=== PATIENT | female | born 1955 | race Caucasian/White ===

== ENCOUNTER → 2016-06-25 | Outpatient (CLI) | payer OTHER ==
[~2016-06-25] MED LIST: ATOR10TA82 PO; CLB200 PO; CLX20 PO; ERGO500037 PO; ETAN25IN2 INJ; FOLI1TAB7 PO; HYDC25 PO; LISI-461 PO; METH2.5T PO; PRED-301 PO
[2016-06-25 10:44] LABS: BASO % 0.3 %; BASO ABS # 0.03 K/uL (0-0.2); COMPLETE YES; HEMATOCRIT 39.3 % (37-47); IG% 0.3 %; LYMPH % 26.1 %; LYMPH ABS # 2.34 K/uL (1.2-3.4); MEAN CELL VOLUME 97.8 fL (80-100); MEAN CORPUSCULAR HEMOGLOBIN 30.8 pg (25-34); MEAN CORPUSCULAR HGB CONC 31.6 g/dl (32-36); MEAN PLATELET VOLUME 9.8 fL (7.4-10.4); MONO % 7.6 %; NEUT % 62.7 %; PLATELET COUNT 242 K/uL (130-400); RED BLOOD COUNT 4.02 M/uL (4.2-5.4); WHITE BLOOD COUNT 8.95 K/uL (4.8-10.8)
[2016-06-25 10:59] LABS: ESTIMATED AVERAGE GLUCOSE 131 mg/dl; HA1C FLAG Normal (Normal)
[2016-06-25 11:33] LABS: ALKALINE PHOSPHATASE 71 U/L (45-117); ALT/SGPT 27 U/L (12-78); AST/SGOT 13 U/L (15-37); BLOOD UREA NITROGEN 20 mg/dl (7-18); BUN/CREATININE RATIO 22.5 (10-20); CALCIUM 9.5 mg/dl (8.5-10.1); CARBON DIOXIDE 32 mmol/L (21-32); CHLORIDE 108 mmol/L (98-107); CREATININE 0.89 mg/dl (0.60-1.20); GLUCOSE 127 mg/dl (70-99); HDL CHOLESTEROL 56 mg/dl; POTASSIUM 4.1 mmol/L (3.5-5.1); SODIUM 143 mmol/L (136-145)
[2016-06-25 11:34] LABS: ALB/GLOB RATIO 0.9 (0.9-2); CHOLESTEROL 167 mg/dl (0-200); LDL CHOLESTEROL CALCULATED 74 mg/dl; TRIGLYCERIDES 183 mg/dl (0-150); VERY LOW DENSITY LIPOPROT CALC 37 mg/dl
[2016-06-25 11:36] LABS: RATIO 12.1 mcg/mg (0-30.0)
== END | disposition home or self-care (01) ==
LOC: C.LAB1850 09:26
PROVIDERS: ATTEND Internal Medicine Rheumatology
DX: E11.9 Type 2 diabetes mellitus without complications (principal); M06.9 Rheumatoid arthritis, unspecified; E78.5 Hyperlipidemia, unspecified; E55.9 Vitamin D deficiency, unspecified; Z79.52 Long term (current) use of systemic steroids; Z79.899 Other long term (current) drug therapy

== ENCOUNTER → 2016-09-18 | Outpatient (CLI) | payer OTHER ==
[~2016-09-18] MED LIST changes: -ATOR10TA82 PO; +ATOR10TA88 PO
--- NOTE | 2016-09-21 08:00 | MAMMOGRAPHY REPORT ---
BILATERAL DIGITAL SCREENING MAMMOGRAM TOMOSYNTHESIS WITH CAD: 09/18/2016 CLINICAL HISTORY: Routine screening. Patient has no complaints. TECHNIQUE: Breast tomosynthesis in addition to standard 2D mammography was performed. Current study was also evaluated with a Computer Aided Detection (CAD) system. COMPARISON: Comparison is made to exams dated: 08/21/2015 mammogram, 08/17/2014 mammogram, 08/14/2013 m ammogram, 08/11/2012 mammogram, 07/31/2011 mammogram, and 07/03/2010 mammogram - [facility]. BREAST COMPOSITION: There are scattered areas of fibroglandular density in both breasts. FINDINGS: There is stable nodularity in the anterior and lateral left breast. No suspicious mass, ar chitectural distortion or cluster of microcalcifications is seen. IMPRESSION: ACR BI-RADS CATEGORY 1: NEGATIVE There is no mammographic evidence of malignancy. A 1 year screening mammogram is recommended. The pa tient will receive written notification of the results. Approximately 10% of breast cancers are not detected with mammography. A negative mammographic report should not delay biopsy if a clinically suggestive mass is present. Agnes Kimbrough M.D. ay/:09/18/2016 15:44:12 Prototype Carpenter: Alyssa LEDESMA(R)(M), [facility] letter sent: Normal 1/2 BI-RADS Code: ACR BI-RADS Category 1: Negative
== END | disposition home or self-care (01) ==
LOC: C.MAMM 15:08
PROVIDERS: ATTEND Internal Medicine
DX: Z12.31 Encounter for screening mammogram for malignant neoplasm of breast (principal)

== ENCOUNTER → 2016-10-15 | Outpatient (CLI) | payer OTHER ==
[2016-10-15 10:28] LABS: BASO % 0.3 %; BASO ABS # 0.03 K/uL (0-0.2); COMPLETE YES; EOS % 2.4 %; HEMATOCRIT 40.9 % (37-47); IG% 0.4 %; LYMPH % 26.5 %; LYMPH ABS # 3.18 K/uL (1.2-3.4); MEAN CELL VOLUME 95.3 fL (80-100); MEAN CORPUSCULAR HGB CONC 32.5 g/dl (32-36); MEAN PLATELET VOLUME 9.4 fL (7.4-10.4); NEUT % 62.4 %; PLATELET COUNT 271 K/uL (130-400); RED BLOOD COUNT 4.29 M/uL (4.2-5.4); WHITE BLOOD COUNT 11.99 K/uL (4.8-10.8)
[2016-10-15 10:39] LABS: BLOOD UREA NITROGEN 25 mg/dl (7-18); GLUCOSE 127 mg/dl (70-99)
[2016-10-15 10:40] LABS: ALT/SGPT 30 U/L (12-78); BUN/CREATININE RATIO 27.4 (10-20); CALCIUM 9.6 mg/dl (8.5-10.1); CARBON DIOXIDE 30 mmol/L (21-32); CHLORIDE 104 mmol/L (98-107); POTASSIUM 4.1 mmol/L (3.5-5.1); SODIUM 137 mmol/L (136-145)
[2016-10-15 10:42] LABS: ALKALINE PHOSPHATASE 72 U/L (45-117); AST/SGOT 15 U/L (15-37)
[2016-10-15 11:33] LABS: ESTIMATED AVERAGE GLUCOSE 140 mg/dl; HA1C FLAG Normal (Normal)
== END | disposition home or self-care (01) ==
LOC: C.LAB1850 09:03
PROVIDERS: ATTEND Internal Medicine
DX: E11.9 Type 2 diabetes mellitus without complications (principal); M06.9 Rheumatoid arthritis, unspecified; Z79.52 Long term (current) use of systemic steroids; Z79.899 Other long term (current) drug therapy; M25.532 Pain in left wrist

== ENCOUNTER → 2017-01-11 | Outpatient (CLI) | payer OTHER ==
[~2017-01-11] MED LIST changes: +ATOR10TA82 PO; -ATOR10TA88 PO
[2017-01-11 15:05] LABS: BASO % 0.2 %; BASO ABS # 0.02 K/uL (0-0.2); COMPLETE YES; EOS % 0.8 %; HEMATOCRIT 38.9 % (37-47); IG% 0.3 %; LYMPH % 14.7 %; LYMPH ABS # 1.85 K/uL (1.2-3.4); MEAN CORPUSCULAR HEMOGLOBIN 30.5 pg (25-34); MEAN CORPUSCULAR HGB CONC 31.1 g/dl (32-36); MEAN PLATELET VOLUME 9.6 fL (7.4-10.4); MONO % 7.2 %; NEUT % 76.8 %; PLATELET COUNT 245 K/uL (130-400); RED BLOOD COUNT 3.97 M/uL (4.2-5.4); WHITE BLOOD COUNT 12.57 K/uL (4.8-10.8)
[2017-01-11 15:25] LABS: ALT/SGPT 24 U/L (12-78); CREATININE 0.99 mg/dl (0.60-1.20)
[2017-01-11 15:28] LABS: ALKALINE PHOSPHATASE 74 U/L (45-117); AST/SGOT 13 U/L (15-37)
== END | disposition home or self-care (01) ==
LOC: C.LAB1850 12:09
PROVIDERS: ATTEND Internal Medicine Rheumatology
DX: M06.9 Rheumatoid arthritis, unspecified (principal); Z79.52 Long term (current) use of systemic steroids; Z79.899 Other long term (current) drug therapy

== ENCOUNTER → 2017-04-23 | Outpatient (CLI) | payer OTHER ==
[~2017-04-23] MED LIST changes: -FOLI1TAB7 PO; +FOLI1TAB8 PO
--- NOTE | 2017-04-23 08:41 | DIAGNOSTIC IMAGING REPORT ---
L WRIST MIN 3 VIEWS ROUTINE CLINICAL HISTORY: LEFT WRIST PAIN pain COMPARISON: None. DISCUSSION: Severe degenerative change radiocarpal and ulnar carpal articulations. Significant degenerative change of the radial ulnar articulation. Sclerosis of the articular services and this. Mild degenerative change of the remaining intercarpal as well as carpometacarpal joints. Moderate generalized soft tissue edema. IMPRESSION: Severe degenerative change primarily of the radial and ulnar carpal articulations. The above report was generated using voice recognition software. It may contain grammatical, syntax or spelling errors. Electronically signed by: Lucien Goodman M.D. 04/23/2017 8:40 AM Dictated Date/Time: 04/23/2017 8:39 AM
== END | disposition home or self-care (01) ==
LOC: C.RDSM 19:39
PROVIDERS: ATTEND Physician Assistant
DX: M25.532 Pain in left wrist (principal); M19.032 Primary osteoarthritis, left wrist

== ENCOUNTER → 2017-06-11 | Outpatient (CLI) | payer OTHER ==
--- NOTE | 2017-06-11 13:02 | DIAGNOSTIC IMAGING REPORT ---
CHEST 2 VIEWS ROUTINE HISTORY: 61 years-old Female J45.909 Asthma acute asthma COMPARISON: None available TECHNIQUE: PA and lateral views of the chest FINDINGS: Cardiomediastinal and hilar silhouettes are within normal limits. There is no pneumothorax, pleural effusion, focal airspace consolidation or overt pulmonary edema. Bones of the chest appear grossly intact. Multilevel endplate spurring about the spine. Evaluation of the lungs in the lateral view is limited secondary to positioning of the patient's upper extremities. IMPRESSION: No acute process of the chest. The above report was generated using voice recognition software. It may contain grammatical, syntax or spelling errors. Electronically signed by: Ozzy Jimenez M.D. 06/11/2017 1:00 PM Dictated Date/Time: 06/11/2017 12:59 PM
[2017-06-11 14:05] LABS: BASO % 0.1 %; BASO ABS # 0.02 K/uL (0-0.2); EOS % 1.3 %; EOS ABS # 0.21 K/uL (0-0.5); HEMATOCRIT 41.9 % (37-47); HEMOGLOBIN 13.4 g/dL (12.0-16.0); IG# 0.16 K/uL (0.00-0.02); LYMPH % 15.1 %; LYMPH ABS # 2.46 K/uL (1.2-3.4); MEAN CELL VOLUME 94.8 fL (80-100); MEAN CORPUSCULAR HEMOGLOBIN 30.3 pg (25-34); MEAN PLATELET VOLUME 9.6 fL (7.4-10.4); MONO % 6.2 %; MONO ABS # 1.01 K/uL (0.11-0.59); NEUT % 76.3 %; NEUT ABS # 12.41 K/uL (1.4-6.5); PLATELET COUNT 261 K/uL (130-400); RED CELL DISTRIBUTION WIDTH CV 14.2 % (11.5-14.5); RED CELL DISTRIBUTION WIDTH SD 48.3 fL (36.4-46.3); WHITE BLOOD COUNT 16.27 K/uL (4.8-10.8)
[2017-06-11 14:28] LABS: ALBUMIN 3.4 gm/dl (3.4-5.0); ALT/SGPT 24 U/L (12-78); AST/SGOT 13 U/L (15-37); CREATININE 0.99 mg/dl (0.60-1.20)
[2017-06-11 14:30] LABS: ALKALINE PHOSPHATASE 79 U/L (45-117); TOTAL PROTEIN 7.8 gm/dl (6.4-8.2)
== END | disposition home or self-care (01) ==
LOC: C.RAD1850 12:37
PROVIDERS: ATTEND Internal Medicine
DX: J45.909 Unspecified asthma, uncomplicated (principal); M06.9 Rheumatoid arthritis, unspecified; Z79.899 Other long term (current) drug therapy; M25.532 Pain in left wrist

== ENCOUNTER 2019-11-08 05:33 | Inpatient (IN) ==
[2019-11-08] MEDS ORDERED: KETOROLAC TROMETHAMINE 15 MG/ML VIAL IV STA (06:47)
[2019-11-08] MEDS ORDERED: ACETAMINOPHEN 1,000 MG/100 ML VIAL IV STA (06:47)
[2019-11-08] MEDS ORDERED: SODIUM CHLORIDE 0.9% 1000ML 1,000 ML IV ONE (06:47)
[2019-11-08] MEDS ORDERED: DEXAMETHASONE SOD INJ 10 MG/ML VIAL IV ONE (06:47)
--- NOTE | 2019-11-08 07:00 | Emergency Department Note ---
Impression & Plan Protrusion of lumbar intervertebral disc, Left lumbar radiculopathy, Intractable low back pain ED Provider Note NAME: ARIELLA ROBERTSON AGE: 64 SEX: F ARRIVES VIA: Ambulance INFORMANT: Patient, ED PROVIDER(S): Anish Brown MD CHIEF COMPLAINT: Back pain PLAN: Disposition: Admit MEDICAL DECISION MAKING: The patient is a pleasant 60-year-old woman with a past medical history of chronic back pain, rheumatoid arthritis, hypertension, hyperlipidemia who presents emergency department with worsening lumbar pain with radiation and numbness down her left leg seen in emergency department on 11/03 for similar symptoms, pain management and currently following with attempting to get outpatient MRI but requires sedation and coordination with anesthesia due to her severe claustrophobia even with an open MRI. Patient denies any urinary retention or loss of bowel control. She denies any fevers, chills, cough, congestion, vomiting, diarrhea, urinary symptoms. She reports that the flare of her pain started breast about a month ago and would wax and wane. It got much worse 4 days ago and so she presented to the emergency department. She reports she did feel some over the past 4 days where she was able to ambulate improvement back and forth from the bathroom but otherwise has not been doing much. Last night around 4 AM she reports going to the bathroom and when bending over to sit on the commode felt a acute flare of her pain that nearly made her fall but she fortunately sat back onto the toilet. Given this flare of pain she comes to emergency department. On arrival the patient is uncomfortable no acute distress, afebrile stable vital signs. She has mild left lower lumbar tenderness which radiates distally in the sciatic distribution. Positive straight leg raise. Reflexes within normal limits. No clonus. L5 intact bilaterally. No midline tenderness or step-offs. WBC 11.7, nonspecific. H/H and platelets within normal limits. Chemistry without acidosis. Electrolytes and LFTs unremarkable. ESR marginally elevated but CRP within normal limits. UA without convincing evidence of infection given epithelial cells. CT on pelvis was performed and demonstrates left lateral disc herniation with superiorly extruded fragment at L4-L5. Findings do correlate with the patient's symptoms. While patient did feel improved she does report still feeling uncomfortable and is concerned that her symptoms will flare again and given that the patient was barely able to walk prior to arrival we agreed to proceed with admission for pain control. I did review the case with Dr. Uribe, orthopedic spine who was about to begin an OR case but I described the patient's symptoms and imaging findings and we agree with admission to medicine service for pain control and he will be available for consultation. Likely will require anesthesia consultation to obtain MRI. Case was discussed with Dr. Barnett, [facility] hospitalist, who will evaluate the patient for admission. Triage Nursing notes reviewed and agree them. Prior medical records reviewed Vital Signs: reviewed and remarkable for no significant abnormalities Differential diagnosis: Musculoskeletal, disc herniation, fracture, metastatic disease, cord compression, discitis, sciatica, cauda equina, infection, aortic disease, renal colic, gastrointestinal, as well as other pathologies. ER treatment provided: See below. Diagnostics interpreted by me: Cardiac Monitoring: An order for continuous cardiac monitoring was placed and demonstrated NSr, 67 bpm, no ectopy. Laboratory studies: See below Imaging studies: CT SCAN OF THE ABDOMEN AND PELVIS WITH IV CONTRAST CLINICAL HISTORY: Left-sided back pain. COMPARISON STUDY: MRI of lumbar spine dated 02/23/2018. TECHNIQUE: Following the IV administration of 94 cc of Optiray 320, CT scan of the abdomen and pelvis is performed from the lung bases to the proximal femora. Images are reviewed in the axial, sagittal, and coronal planes. IV contrast was administered without complication. A dose lowering technique was utilized adhering to the principles of ALARA. CT DOSE: 1654.52 mGy.cm FINDINGS: Lung bases: The heart is top normal in size and without pericardial effusion. There is a small hiatal hernia. The lung bases are clear noting dependent atelectasis. Liver: The contrast-enhanced liver is enlarged, measuring 20.5 cm in length. The liver demonstrates diminished attenuation suggesting steatosis. There is no intrahepatic biliary ductal dilatation. The hepatic veins and portal veins are patent. Gallbladder: Unremarkable. Spleen: Normal in size and attenuation. Pancreas: Unremarkable. Adrenal glands: Unremarkable. Kidneys: The contrast enhanced kidneys demonstrate mild cortical atrophy and are without hydronephrosis. The kidneys enhance symmetrically. Abdominal vasculature: The abdominal aorta is normal in course and caliber noting mild atherosclerotic calcification. Bowel: There is moderate colonic diverticulosis without CT evidence of acute diverticulitis. No bowel obstruction is seen. The appendix is well-visualized and normal. Peritoneum: There is no intraperitoneal free air or abdominal ascites. There is a small fat-containing umbilical hernia. Lymphadenopathy: None. Pelvic viscera: The bladder is decompressed and grossly unremarkable. The endometrium is prominent for age measuring up to 11 mm in thickness. There is also prominence of the left ovary which measures 3.6 cm. Skeletal structures: The skeletal structures are osteopenic. There is mild lumbosacral spondylosis. There is a disc herniation eccentric to the left at L4- L5 with a superiorly extruded fragment which is best seen on image #265. No lytic or blastic lesions are seen. IMPRESSION: 1. There are no acute infectious or inflammatory findings in the abdomen or pelvis. 2. There is a left lateral disc herniation with a superiorly extruded fragment seen at L4-L5. 3. The endometrium is prominent for age measuring up to 11 mm. There is also nonspecific prominence of the left ovary. These findings are not well evaluated by CT and follow-up with a pelvic ultrasound and gynecology assessment is isabel mmended for further evaluation. 4. Moderate colonic diverticulosis without CT evidence of acute diverticulitis. 5. Hepatomegaly and mild steatosis. 6. Additional findings as above. Consultation(s): Dr. Uribe, orthopedic spine surgery. Dr. Barnett, [facility] hospitalist. HPI: The patient is a pleasant 60-year-old woman with a past medical history of chronic back pain, rheumatoid arthritis, hypertension, hyperlipidemia who presents emergency department with worsening lumbar pain with radiation and numbness down her left leg seen in emergency department on 11/03 for similar symptoms, pain management and currently following with attempting to get outpatient MRI but requires sedation and coordination with anesthesia due to her severe claustrophobia even with an open MRI. Patient denies any urinary retention or loss of bowel control. She denies any fevers, chills, cough, congestion, vomiting, diarrhea, urinary symptoms. She reports that the flare of her pain started breast about a month ago and would wax and wane. It got much worse 4 days ago and so she presented to the emergency department. She reports she did feel some over the past 4 days where she was able to ambulate improvement back and forth from the bathroom but otherwise has not been doing much. Last night around 4 AM she reports going to the bathroom and when bending over to sit on the commode felt a acute flare of her pain that nearly made her fall but she fortunately sat back onto the toilet. Given this flare of pain she comes to emergency department. ROS: See above HPI for pertinent positives & negatives. A total of 10 systems reviewed and were otherwise negative. PAST MEDICAL HISTORY:See Below PAST SURGICAL HISTORY:See Below FAMILY HISTORY:See Below SOCIAL HISTORY:See Below HOME MEDICATIONS:See Below ALLERGIES:See Below VITALS:See Below PHYSICAL EXAMINATION: GENERAL: Awake, alert, uncomfortable-appearing, in no distress. BMI 39. HENT: Normocephalic, atraumatic. Oropharynx with dry mucous membranes and otherwise unremarkable. EYES: Normal conjunctiva. Sclera non-icteric. NECK: Supple. No nuchal rigidity. FROM. No JVD. RESPIRATORY: Clear to auscultation. CARDIAC: Regular rate, normal rhythm. Extremities warm and well perfused. Pulses equal. ABDOMEN: Soft, non-distended. No tenderness to palpation. No rebound or guarding. No masses. RECTAL: Deferred. MUSCULOSKELETAL: Chest examination reveals no tenderness. The back is symmetrical on inspection without obvious abnormality. There is no CVA tenderness to palpation. No joint edema. LOWER EXTREMITIES: Calves are equal size bilaterally and non-tender. No edema. No discoloration. NEURO: Normal sensorium. No sensory or motor deficits noted. 5/5 strength and SILT x 4 extremities. Reflexes within normal limits. No clonus. L5 intact bilaterally. SKIN: No rash or jaundice noted. Anish Brown MD Past Med/Surg History Medical History Anxiety Asthma Chronic back pain Chronic left sacroiliac joint pain Claustrophobia Depression Hyperlipidemia Hypertension Morbid obesity Rheumatoid arthritis Surgical History History of cataract surgery BILATERAL History of colonoscopy History of total knee replacement BILATERAL S/P epidural steroid injection lumbar Family History Mother Family hx of colon cancer Father Family history of diabetes mellitus Family/Other Family history of diabetes mellitus Social History Smoking Status: Never smoker Second Hand Exposure: No; Hx Alcohol Use: No Hx Substance Use: No Preferred Language: Spanish Communication Ability: Effective Rn Telephonic Required: No Beliefs That Will Affect Care: None Current Living Situation: Spouse Feels Safe at Home: Yes Allergies Allergies Allergy/AdvReac Type Severity Reaction Status Date / Time cat dander Allergy Intermediate Wheezing Verified 11/08/19 05:47 levofloxacin Allergy Intermediate Rash Verified 11/08/19 05:47 Home Meds Home Medications Medication Instructions Recorded Confirmed folic acid 1 mg PO DAILY 01/18/18 11/08/19 methotrexate sodium 15 mg PO WK 01/18/18 11/08/19 etanercept 50 mg/mL (1 mL) 50 mg SQ WEEKLY ml 10/25/18 11/08/19 subcutaneous syringe acetaminophen 1,000 mg PO Q6H PRN 11/04/19 11/08/19 cholecalciferol (vitamin D3) 2,000 unit PO DAILY 11/04/19 11/08/19 [Vitamin D3] famotidine 40 mg PO QPM 11/04/19 11/08/19 prednisone 5 mg PO DAILY 11/04/19 11/08/19 Previous Rx's Medication Instructions Recorded atorvastatin 10 mg tablet 10 mg PO QPM #90 tab 09/28/19 celecoxib 200 mg capsule 200 mg PO BID #180 cap 09/28/19 citalopram 20 mg tablet 20 mg PO QPM #90 tab 09/28/19 hydrochlorothiazide 25 mg tablet 25 mg PO QAM #90 tab 09/28/19 lisinopril 10 mg tablet 10 mg PO QAM #90 tab 09/28/19 methylprednisolone [Medrol (Tolu)] 4 mg PO DIRECTED #21 ea 11/04/19 oxycodone 5 mg PO Q6H PRN #14 tab 11/04/19 sennosides-docusate sodium 1 tab-cap PO BID PRN #60 tab 11/04/19 [Senokot-S] Results & Data (ED) Vital Signs Vital Signs - 24 hr 11/08/19 05:40 11/08/19 07:05 11/08/19 08:06 Temperature 36.7 C Temperature Source Oral Pulse Rate 71 Pulse Rate [Right Finger] 76 Respiratory Rate 20 20 Respiratory Effort / Characteristics Non-Labored Spontaneous Respiratory Depth Normal Normal Blood Pressure 148/85 H Blood Pressure [Right Arm] 137/93 Blood Pressure Mean 106 Blood Pressure Mean [Right Arm] 107 Pulse Oximetry 94 96 95 Oxygen Delivery Method Room Air Room Air Room Air Sepsis Recent Fever Within 48 Hours No Sepsis New/Unexplained Change in Mental Status N/A Sepsis Action Taken by Nursing No Action Required 11/08/19 09:57 11/08/19 11:06 Temperature Temperature Source Pulse Rate Pulse Rate [Right Finger] 58 L 63 Respiratory Rate 20 20 Respiratory Effort / Characteristics Non-Labored Respiratory Depth Normal Blood Pressure Blood Pressure [Right Arm] 132/74 148/97 H Blood Pressure Mean Blood Pressure Mean [Right Arm] 93 114 Pulse Oximetry 94 96 Oxygen Delivery Method Room Air Room Air Sepsis Recent Fever Within 48 Hours Sepsis New/Unexplained Change in Mental Status Sepsis Action Taken by Nursing Laboratory Data Attestation: I reviewed the patient's lab results. Result diagrams: 11/08/19 07:00 11/08/19 07:00 Lab Results 11/08/19 11/08/19 11/08/19 Range/Units 07:00 07:00 07:00 WBC 11.73 H (4.8-10.8) K/uL RBC 4.39 (4.2-5.4) M/uL Hgb 13.3 (12.0-16.0) g/dL Hct 41.5 (37-47) % MCV 94.5 (80-100) fL MCH 30.3 (25-34) pg MCHC 32.0 (32-36) g/dL RDW Std Deviation 50.2 H (36.4-46.3) fL RDW Coeff of Jaqueline 14.6 H (11.5-14.5) % Plt Count 245 (130-400) K/uL MPV 9.4 (7.4-10.4) fL Immature Gran % (Auto) 0.4 % Neut % (Auto) 73.8 % Lymph % (Auto) 19.0 % Treasure % (Auto) 6.6 % Eos % (Auto) 0.1 % Baso % (Auto) 0.1 % Neut # (Auto) 8.65 H (1.4-6.5) K/uL Lymph # (Auto) 2.23 (1.2-3.4) K/uL Treasure # (Auto) 0.78 H (0.11-0.59) K/uL Eos # (Auto) 0.01 (0-0.5) K/uL Baso # (Auto) 0.01 (0-0.2) K/uL Immature Gran # (Auto) 0.05 H (0.00-0.02) K/uL ESR 29 H (0-21) mm/hr Sodium 137 (136-145) mmol/L Potassium 4.5 (3.5-5.1) mmol/L Chloride 102 (98-107) mmol/L Carbon Dioxide 29 (21-32) mmol/L Anion Gap 6.0 (3-11) BUN 33 H (7-18) mg/dl Creatinine 1.07 (0.6-1.2) mg/dl Est Cr Clr Drug Dosing 67.1 ml/min Est GFR ( Amer) 62.7 Est GFR (Non-Af Amer) 54.1 BUN/Creatinine Ratio 31.2 H (10-20) Glucose 181 H (70-99) mg/dl Calcium 10.2 H (8.5-10.1) mg/dl Total Bilirubin 0.3 (0.2-1) mg/dl AST 15 (15-37) U/L ALT 31 (12-78) U/L Alkaline Phosphatase 57 (45-117) U/L C-Reactive Protein < 0.29 (0-0.29) mg/dl Total Protein 7.5 (6.4-8.2) gm/dl Albumin 3.5 (3.4-5.0) gm/dl Globulin 4.0 (2.5-4.0) gm/dl Albumin/Globulin Ratio 0.9 (0.9-2) Lipase 146 (73-393) U/L Urine Color Urine Appearance (Clear) Urine pH (4.5-7.5) Ur Specific [place] (1.000-1.030) Urine Protein (Negative) Urine Glucose (UA) (Negative) Urine Ketones (Negative) Urine Blood (Negative) Urine Nitrite (Negative) Urine Bilirubin (Negative) Urine Urobilinogen (Negative) Ur Leukocyte Esterase (Negative) Urine WBC (Auto) (0-5) /hpf Urine RBC (Auto) (0-4) /hpf U Hyaline Cast (Auto) (0-5) /lpf U Epithel Cells (Auto) (0-5) /lpf Urine Bacteria (Auto) (Negative) 11/08/19 Range/Units 08:00 WBC (4.8-10.8) K/uL RBC (4.2-5.4) M/uL Hgb (12.0-16.0) g/dL Hct (37-47) % MCV (80-100) fL MCH (25-34) pg MCHC (32-36) g/dL RDW Std Deviation (36.4-46.3) fL RDW Coeff of Jaqueline (11.5-14.5) % Plt Count (130-400) K/uL MPV (7.4-10.4) fL Immature Gran % (Auto) % Neut % (Auto) % Lymph % (Auto) % Treasure % (Auto) % Eos % (Auto) % Baso % (Auto) % Neut # (Auto) (1.4-6.5) K/uL Lymph # (Auto) (1.2-3.4) K/uL Treasure # (Auto) (0.11-0.59) K/uL Eos # (Auto) (0-0.5) K/uL Baso # (Auto) (0-0.2) K/uL Immature Gran # (Auto) (0.00-0.02) K/uL ESR (0-21) mm/hr Sodium (136-145) mmol/L Potassium (3.5-5.1) mmol/L Chloride (98-107) mmol/L Carbon Dioxide (21-32) mmol/L Anion Gap (3-11) BUN (7-18) mg/dl Creatinine (0.6-1.2) mg/dl Est Cr Clr Drug Dosing ml/min Est GFR ( Amer) Est GFR (Non-Af Amer) BUN/Creatinine Ratio (10-20) Glucose (70-99) mg/dl Calcium (8.5-10.1) mg/dl Total Bilirubin (0.2-1) mg/dl AST (15-37) U/L ALT (12-78) U/L Alkaline Phosphatase (45-117) U/L C-Reactive Protein (0-0.29) mg/dl Total Protein (6.4-8.2) gm/dl Albumin (3.4-5.0) gm/dl Globulin (2.5-4.0) gm/dl Albumin/Globulin Ratio (0.9-2) Lipase (73-393) U/L Urine Color Yellow Urine Appearance Clear (Clear) Urine pH 6.0 (4.5-7.5) Ur Specific [place] 1.029 (1.000-1.030) Urine Protein Negative (Negative) Urine Glucose (UA) Negative (Negative) Urine Ketones Negative (Negative) Urine Blood Negative (Negative) Urine Nitrite Negative (Negative) Urine Bilirubin Negative (Negative) Urine Urobilinogen Negative (Negative) Ur Leukocyte Esterase Trace H (Negative) Urine WBC (Auto) 5-10 H (0-5) /hpf Urine RBC (Auto) 0-4 (0-4) /hpf U Hyaline Cast (Auto) 1-5 (0-5) /lpf U Epithel Cells (Auto) >30 H (0-5) /lpf Urine Bacteria (Auto) Negative (Negative) Administered Medications Acetaminophen (Acetaminophen 325 Mg Tab) 650 mg PO Q4H PRN PRN Reason: pain/fever Stop: 12/08/19 11:07 Last Admin: 11/08/19 20:03 Dose: 650 mg Documented by: [id number] Atorvastatin Calcium (Atorvastatin 10 Mg Tab) 10 mg PO QPM YULISA Stop: 12/08/19 20:59 Last Admin: 11/08/19 20:04 Dose: 10 mg Documented by: [id number] Citalopram Hydrobromide (Citalopram 20 Mg Tab) 20 mg PO QPM YULISA Stop: 12/08/19 20:59 Last Admin: 11/08/19 20:04 Dose: 20 mg Documented by: [id number] Famotidine (Famotidine 40 Mg Tablet) 40 mg PO QPM YULISA Stop: 12/08/19 20:59 Last Admin: 11/08/19 20:04 Dose: 40 mg Documented by: [id number] Heparin Sodium (Porcine) (Heparin Sod 5,000 Unit/0.5 Ml Vial) 5,000 units SQ Q8 YULISA Stop: 12/08/19 13:59 Last Admin: 11/08/19 22:03 Dose: 5,000 units Documented by: [id number] Cosigned by: [id number] Admin: 11/08/19 15:00 Dose: 5,000 units Documented by: [id number] Cosigned by: [id number] Morphine Sulfate (Morphine Sulfate 2 Mg/Ml Carp) 2 mg IV Q4H PRN PRN Reason: Severe Pain Stop: 11/22/19 11:11 Last Admin: 11/08/19 22:03 Dose: 2 mg Documented by: [id number] Admin: 11/08/19 13:51 Dose: 2 mg Documented by: [id number] Discontinued Medications Dexamethasone (Dexamethasone Sod Inj 10 Mg/Ml Vial) 10 mg IV NOW ONE Stop: 11/08/19 06:48 Last Admin: 11/08/19 06:58 Dose: 10 mg Documented by: [id number] Hydrochlorothiazide (Hydrochlorothiazide 25 Mg Tab) 25 mg PO NOW STA Stop: 11/08/19 12:14 Last Admin: 11/08/19 13:44 Dose: 25 mg Documented by: [id number] Sodium Chloride (Nss 1000ml) 1,000 mls @ 999 mls/hr IV .Q1H1M ONE Stop: 11/08/19 07:47 Last Infusion: 11/08/19 08:07 Dose: 0 mls/hr Documented by: [id number] Admin: 11/08/19 06:59 Dose: 999 mls/hr Documented by: [id number] Acetaminophen (Ofirmev) 1,000 mg in 100 mls @ 400 mls/hr IV NOW STA Stop: 11/08/19 07:01 Last Infusion: 11/08/19 07:56 Dose: 0 mls/hr Documented by: [id number] Admin: 11/08/19 06:58 Dose: 400 mls/hr Documented by: [id number] Ioversol (Ioversol 100ml) 94 ml IV ONCE ONE Stop: 11/08/19 08:09 Last Admin: 11/08/19 08:08 Dose: 94 ml Documented by: [id number] Ketorolac Tromethamine (Ketorolac Tromethamine 15 Mg/Ml Vial) 15 mg IV NOW STA Stop: 11/08/19 06:48 Last Admin: 11/08/19 06:58 Dose: 15 mg Documented by: [id number] Lisinopril (Lisinopril 10 Mg Tab) 10 mg PO NOW ONE Stop: 11/08/19 12:15 Last Admin: 11/08/19 13:44 Dose: 10 mg Documented by: [id number] Morphine Sulfate (Morphine Sulfate 4 Mg/Ml 1 Ml Carp\Vial) 4 mg IV NOW STA Stop: 11/08/19 10:40 Last Admin: 11/08/19 11:03 Dose: 4 mg Documented by: [id number] Blood Pressure Blood Pressure Findings: Normal blood pressure Blood Pressure Disposition: further management by hospitalist Discharge Plan Visit Data Chief Complaint: Back Injury/Pain Stated Complaint: BACK PAIN ED Provider: Anish Brown Discharge Problem: Protrusion of lumbar intervertebral disc, Left lumbar radiculopathy, Intractable low back pain Patient Disposition: Admitted As Inpatient Discharge Instructions Interventions: ED Discharge Assessment Last Done: 11/08/19 12:00
[2019-11-08 07:18] LABS: Basophils # (auto) 0.01 K/uL (0-0.2); Basophils % (auto) 0.1 %; Eosinophils # (auto) 0.01 K/uL (0-0.5); Eosinophils % (auto) 0.1 %; Hematocrit (blood only) 41.5 % (37-47); Hemoglobin 13.3 g/dL (12.0-16.0); Immature Granulocytes # (auto) 0.05 K/uL (0.00-0.02); Immature Granulocytes % (auto) 0.4 %; Lymphocytes # (auto) 2.23 K/uL (1.2-3.4); Mean Corpuscular Hemoglobin 30.3 pg (25-34); Mean Corpuscular Volume 94.5 fL (80-100); Mean Platelet Volume 9.4 fL (7.4-10.4); Monocytes # (auto) 0.78 K/uL (0.11-0.59); Monocytes % (auto) 6.6 %; Neutrophils # (auto) 8.65 K/uL (1.4-6.5); Neutrophils % (auto) 73.8 %; Platelet Count 245 K/uL (130-400); RDW Coefficient of Variation 14.6 % (11.5-14.5); RDW Standard Deviation 50.2 fL (36.4-46.3); Red Blood Count 4.39 M/uL (4.2-5.4); White Blood Count 11.73 K/uL (4.8-10.8)
[2019-11-08 07:36] LABS: Alanine Aminotransferase 31 U/L (12-78); Albumin Level 3.5 gm/dl (3.4-5.0); Aspartate Aminotransferase 15 U/L (15-37); BUN Creatinine Ratio 31.2 (10-20); Blood Urea Nitrogen 33 mg/dl (7-18); Calcium 10.2 mg/dl (8.5-10.1); Carbon Dioxide 29 mmol/L (21-32); Chloride 102 mmol/L (98-107); Creatinine Clr Calc Pharmacy 67.1 ml/min; Est GFR (African American) 62.7; Est GFR (Non-African American) 54.1; Glucose 181 mg/dl (70-99); Lipase 146 U/L (73-393); Potassium 4.5 mmol/L (3.5-5.1); Sodium 137 mmol/L (136-145)
[2019-11-08 07:39] LABS: Albumin Globulin Ratio 0.9 (0.9-2); Alkaline Phosphatase 57 U/L (45-117); Bilirubin,Total 0.3 mg/dl (0.2-1); C Reactive Protein < 0.29 mg/dl (0-0.29); Total Protein 7.5 gm/dl (6.4-8.2)
[2019-11-08] MEDS ORDERED: IOVERSOL 100ml IV ONE (08:08)
[2019-11-08 08:09] LABS: Appearance Urine Clear (Clear); Bacteria Urine Automated Negative (Negative); Bilirubin Urine Negative (Negative); Blood Urine Negative (Negative); Color Urine Yellow; Epithelial Cell Urine Auto >30 /lpf (0-5); Glucose Urine UA Negative (Negative); Ketones Urine Negative (Negative); Leukocyte Esterase Urine Trace (Negative); Nitrite Urine Negative (Negative); Protein Urine Negative (Negative); RBC Urine Automated 0-4 /hpf (0-4); Specific Gravity Urine 1.029 (1.000-1.030); Urobilinogen Urine Negative (Negative)
--- NOTE | 2019-11-08 08:37 | CT Scan Report ---
CT SCAN OF THE ABDOMEN AND PELVIS WITH IV CONTRAST CLINICAL HISTORY: Left-sided back pain. COMPARISON STUDY: MRI of lumbar spine dated 02/23/2018. TECHNIQUE: Following the IV administration of 94 cc of Optiray 320, CT scan of the abdomen and pelvi s is performed from the lung bases to the proximal femora. Images are reviewed in the axial, sagittal , and coronal planes. IV contrast was administered without complication. A dose lowering technique wa s utilized adhering to the principles of ALARA. CT DOSE: 1654.52 mGy.cm FINDINGS: Lung bases: The heart is top normal in size and without pericardial effusion. There is a small hiatal hernia. The lung bases are clear noting dependent atelectasis. Liver: The contrast-enhanced liver is enlarged, measuring 20.5 cm in length. The liver demonstrates d iminished attenuation suggesting steatosis. There is no intrahepatic biliary ductal dilatation. The h epatic veins and portal veins are patent. Gallbladder: Unremarkable. Spleen: Normal in size and attenuation. Pancreas: Unremarkable. Adrenal glands: Unremarkable. Kidneys: The contrast enhanced kidneys demonstrate mild cortical atrophy and are without hydronephros is. The kidneys enhance symmetrically. Abdominal vasculature: The abdominal aorta is normal in course and caliber noting mild atheroscleroti c calcification. Bowel: There is moderate colonic diverticulosis without CT evidence of acute diverticulitis. No bowel obstruction is seen. The appendix is well-visualized and normal. Peritoneum: There is no intraperitoneal free air or abdominal ascites. There is a small fat-containin g umbilical hernia. Lymphadenopathy: None. Pelvic viscera: The bladder is decompressed and grossly unremarkable. The endometrium is prominent fo r age measuring up to 11 mm in thickness. There is also prominence of the left ovary which measures 3 .6 cm. Skeletal structures: The skeletal structures are osteopenic. There is mild lumbosacral spondylosis. T here is a disc herniation eccentric to the left at L4-L5 with a superiorly extruded fragment which is best seen on image #265. No lytic or blastic lesions are seen. IMPRESSION: 1. There are no acute infectious or inflammatory findings in the abdomen or pelvis. 2. There is a left lateral disc herniation with a superiorly extruded fragment seen at L4-L5. 3. The endometrium is prominent for age measuring up to 11 mm. There is also nonspecific prominence o f the left ovary. These findings are not well evaluated by CT and follow-up with a pelvic ultrasound and gynecology assessment is recommended for further evaluation. 4. Moderate colonic diverticulosis without CT evidence of acute diverticulitis. 5. Hepatomegaly and mild steatosis. 6. Additional findings as above. ACT 112: Negative or not required by law. Electronically signed by: Kvng Lowery M.D. 11/08/2019 8:35 AM
[2019-11-08] MEDS ORDERED: MoRPHine SULFATE 4 MG/ML 1 ML CARP\\VIAL IV STA (10:39)
[2019-11-08] MEDS ORDERED: ONDANSETRON INJ 2 MG/ML 2 ML VIAL IV PRN (11:08)
[2019-11-08] MEDS ORDERED: POLYETHYLENE (MIRALAX) 17 GM PACK PO PRN (11:08)
[2019-11-08] MEDS ORDERED: OXYCODONE HCL IR 5 MG TAB (IMMEDIATE RELEASE) PO PRN (11:10)
[2019-11-08] MEDS ORDERED: MoRPHine SULFATE 2 MG/ML CARP IV PRN (11:12)
--- NOTE | 2019-11-08 11:22 | History & Physical Report ---
Date of Service November 08, 2019 Assessment & Plan (1) Left lumbar radiculopathy: will admit to hospital under obs. will have her seen by Yakov Ralph. will place her on IV pain medicine will obtain MRI, given she has severe calustrophobia, will have anesthesia consulted for sedation. (2) Hyperlipidemia: resume home meds (3) Hypertension: resume home meds (4) Depression: will place on citalopram 20 mg PO HS (5) Anxiety: will resume home meds (6) Rheumatoid arthritis: stable, will monitor (7) Chronic back pain: as staed above DVT: hepari (8) Morbid obesity: recommend lifestyle changes History of Present Illness Chief Complaint: Acute lower back pain Primary Care Provider: Jose Braxton MD This is a pleasant 64-year-old female who appears to the ER with a past medical history of chronic back pain rheumatoid arthritis hypertension hyperlipidemia. Her main complaint is an exacerbation of her radicular back pain, And numbness down her left leg. She was previously seen by Dr. Yakov Rosenberg over a pain management from [facility]. But has been trying to get into orthopedic surgeon Dr. Yakov Uribe. She was recently seen in the ER on 11/03 for similar symptoms and has been trying to get an outpatient MRI but patient is extremely claustrophobic and requires sedation. Patient denies any urinary retention or loss of bowel control fever chills nausea vomiting urinary symptoms. Patient reports that after being seen in the ER and obtaining medications such as steroid steroids her pain had improved however this morning when she was walking towards the bathroom she was bending over to sit on her commode she felt acute flare of her back pain which caused her to fall but thankfully she if she fell on to the toilet. The pain grew severe 1010 intensity sharp. This prompted the patient to return to the ER. I discussed the case with the ER provider and agree that patient should be admitted under observation for pain control. This patient case was also says Dr. Uribe orthopedic surgeon who will see her later and during his hospital stay. Will consult anesthesia to obtain MRI. Allergies Allergy/AdvReac Type Severity Reaction Status Date / Time cat dander Allergy Intermediate Wheezing Verified 11/08/19 05:47 levofloxacin Allergy Intermediate Rash Verified 11/08/19 05:47 Home Medications Home Medications Medication Instructions Recorded Confirmed Type folic acid 1 mg PO DAILY 01/18/18 11/08/19 History methotrexate sodium 15 mg PO WK 01/18/18 11/08/19 History etanercept 50 mg/mL (1 mL) 50 mg SQ WEEKLY ml 10/25/18 11/08/19 History subcutaneous syringe atorvastatin 10 mg tablet 10 mg PO QPM #90 tab 09/28/19 11/08/19 Rx celecoxib 200 mg capsule 200 mg PO BID #180 cap 09/28/19 11/08/19 Rx citalopram 20 mg tablet 20 mg PO QPM #90 tab 09/28/19 11/08/19 Rx hydrochlorothiazide 25 mg tablet 25 mg PO QAM #90 tab 09/28/19 11/08/19 Rx lisinopril 10 mg tablet 10 mg PO QAM #90 tab 09/28/19 11/08/19 Rx acetaminophen 1,000 mg PO Q6H PRN 11/04/19 11/08/19 History cholecalciferol (vitamin D3) 2,000 unit PO DAILY 11/04/19 11/08/19 History [Vitamin D3] famotidine 40 mg PO QPM 11/04/19 11/08/19 History methylprednisolone [Medrol (Tolu)] 4 mg PO DIRECTED #21 ea 11/04/19 11/08/19 Rx oxycodone 5 mg PO Q6H PRN #14 tab 11/04/19 11/08/19 Rx prednisone 5 mg PO DAILY 11/04/19 11/08/19 History sennosides-docusate sodium 1 tab-cap PO BID PRN #60 tab 11/04/19 11/08/19 Rx [Senokot-S] Past Med/Surg History Medical History Anxiety Asthma Chronic back pain Chronic left sacroiliac joint pain Claustrophobia Depression Hyperlipidemia Hypertension Morbid obesity Rheumatoid arthritis Surgical History History of cataract surgery BILATERAL History of colonoscopy History of total knee replacement BILATERAL S/P epidural steroid injection lumbar Family History Mother Family hx of colon cancer Father Family history of diabetes mellitus Family/Other Family history of diabetes mellitus Social History Smoking Status: Never smoker Second Hand Exposure: No; Hx Alcohol Use: No Hx Substance Use: No Preferred Language: [place] Communication Ability: Effective Public Safety Dispatcher Required: No Beliefs That Will Affect Care: None Current Living Situation: Spouse Feels Safe at Home: Yes Review of Systems Constitutional: no sweats and no malaise Eyes: no blind spots and no discharge Ear, Nose, Mouth, Throat: no ear trauma and no hyperacusis Respiratory: no cough and no dyspnea Cardiovascular: no chest pain with activity Gastrointestinal: no bloating and no nausea Genitourinary: no urinary frequency Musculoskeletal: no back pain Integumentary: no rash Neurologic: no gait abnormality and no localized weakness Psychiatric: no change in appetite Endocrine: no polydipsia Hematologic / Lymphatic: no coagulopathy Allergy / Immunological: no seasonal rhinorrhea Physical Exam Constitutional: WD/WN, vitals as above Eyes: PERRL, conjunctivae normal, anicteric sclerae ENMT: external ear and nose normal, oropharynx normal Neck: trachea midline, no thyromegaly Respiratory: normal respiratory effort, lungs clear to auscultation Cardiovascular: RRR, no murmur, no edema Gastrointestinal (Abdomen): normal bowel sounds, soft, nontender, no hepatosplenomegaly Musculoskeletal: no cyanosis or clubbing, extremities motor strength 5/5 Neurologic: normal touch/pain/proprioception Psychiatric: A+Ox3, euthymic affect Results & Data Results & Data ([facility]) Vital Signs (Past 12 Hours) Vital Signs Temp Pulse Pulse Resp BP BP Pulse Ox 11/08/19 11:06 63 20 148/97 H 96 11/08/19 09:57 58 L 20 132/74 94 11/08/19 08:06 76 20 137/93 95 11/08/19 07:05 96 11/08/19 05:40 36.7 C 71 20 148/85 H 94 PG Care Time/CCT Total # of Minutes Spent Total Time Spent with Patient: Total time spent is greater than 50% in coordination of care (as documented) at patient's floor/unit and/or counseling patient: Coding Level of Care Code 95687 OBS Care - Level 3 Diagnoses Left lumbar radiculopathy M54.16 Hyperlipidemia E78.5 Hypertension I10 Depression F32.9 Anxiety F41.9 Rheumatoid arthritis M06.9 Chronic back pain M54.9; G89.29 Morbid obesity E66.01
[2019-11-08] MEDS ORDERED: hydroCHLOROthiazide 25 MG TAB PO STA (12:13)
[2019-11-08] MEDS ORDERED: lisinopriL 10 MG TAB PO ONE (12:14)
[2019-11-08] MEDS ORDERED: DOCUSATE SODIUM/SENNA 50/8.6MG TAB PO PRN (12:15)
[2019-11-08] MEDS: MoRPHine SULFATE 2 MG/ML CARP IV PRN ×3 (13:51→22:03)
[2019-11-08] MEDS: HEPARIN SOD 5,000 UNIT/0.5 ML VIAL SQ SCH ×2 (15:00→22:03)
--- NOTE | 2019-11-08 16:55 | Orthopedic Consultation ---
Date of Consultation November 08, 2019 Assessment & Plan (1) Protrusion of lumbar intervertebral disc: I had discussion this patient regarding her clinical presentation and CAT scan. There is evidence of marked facet part of the instability and disc herniation at L4-5 level on the left. I would like to obtain x-rays lumbar spine preferably standing as well as consult anesthesia for a sedated MRI of lumbar spine for further anatomic detail. Ultimately she may require lumbar decompression fusion involving the least L4-L5. Patient understands and agrees. Present on Admission?: Yes History of Present Illness Reason for Consultation: Acute on chronic left leg pain Attending Physician: Domingo Barnett History of Present Illness This is a 64-year-old female that presents with a history of significant left sciatica for several years with a significant decline over the past several weeks. She denies any precipitating trauma fall or event. She is undergone several injections in the lumbar spine over the past years that provided temporary relief. Right lower extremity is not affected this time. She denies any loss of bowel bladder function. She is currently retired. Allergies Allergy/AdvReac Type Severity Reaction Status Date / Time cat dander Allergy Intermediate Wheezing Verified 11/08/19 05:47 levofloxacin Allergy Intermediate Rash Verified 11/08/19 05:47 Home Medications Home Medications Medication Instructions Recorded Confirmed Type folic acid 1 mg PO DAILY 01/18/18 11/08/19 History methotrexate sodium 15 mg PO WK 01/18/18 11/08/19 History etanercept 50 mg/mL (1 mL) 50 mg SQ WEEKLY ml 10/25/18 11/08/19 History subcutaneous syringe atorvastatin 10 mg tablet 10 mg PO QPM #90 tab 09/28/19 11/08/19 Rx celecoxib 200 mg capsule 200 mg PO BID #180 cap 09/28/19 11/08/19 Rx citalopram 20 mg tablet 20 mg PO QPM #90 tab 09/28/19 11/08/19 Rx hydrochlorothiazide 25 mg tablet 25 mg PO QAM #90 tab 09/28/19 11/08/19 Rx lisinopril 10 mg tablet 10 mg PO QAM #90 tab 09/28/19 11/08/19 Rx acetaminophen 1,000 mg PO Q6H PRN 11/04/19 11/08/19 History cholecalciferol (vitamin D3) 2,000 unit PO DAILY 11/04/19 11/08/19 History [Vitamin D3] famotidine 40 mg PO QPM 11/04/19 11/08/19 History methylprednisolone [Medrol (Tolu)] 4 mg PO DIRECTED #21 ea 11/04/19 11/08/19 Rx oxycodone 5 mg PO Q6H PRN #14 tab 11/04/19 11/08/19 Rx prednisone 5 mg PO DAILY 11/04/19 11/08/19 History sennosides-docusate sodium 1 tab-cap PO BID PRN #60 tab 11/04/19 11/08/19 Rx [Senokot-S] Patient History Medical History (Updated 11/08/19 @ 10:47 by Anish Brown MD) Anxiety Asthma Chronic back pain Chronic left sacroiliac joint pain Claustrophobia Depression Hyperlipidemia Hypertension Morbid obesity Rheumatoid arthritis Surgical History History of cataract surgery BILATERAL History of colonoscopy History of total knee replacement BILATERAL S/P epidural steroid injection lumbar Family History Mother Family hx of colon cancer Father Family history of diabetes mellitus Family/Other Family history of diabetes mellitus Social History Smoking Status: Never smoker Second Hand Exposure: No; Hx Alcohol Use: No Hx Substance Use: No Preferred Language: [place] Communication Ability: Effective Machine Hoop Maker Required: No Beliefs That Will Affect Care: None Current Living Situation: Spouse Feels Safe at Home: Yes Physical Exam Physical Exam: On exam she is in bed she is nervous distress. She does have reasonable strength detailed testing bilateral plantar flexion especially flexion extensor pollicis longus. Sensory appears to be intact. Tension signs straight leg raising on the left. Results & Data ([facility]) Vital Signs (Past 12 Hours) Vital Signs Temp Pulse Pulse Resp BP BP Pulse Ox 11/08/19 15:20 36.7 C 67 18 115/66 96 11/08/19 13:43 66 118/70 11/08/19 12:56 36.8 C 56 L 16 131/79 94 11/08/19 12:38 36.8 C 56 L 16 131/79 94 11/08/19 11:45 63 20 152/86 H 93 11/08/19 11:06 63 20 148/97 H 96 11/08/19 09:57 58 L 20 132/74 94 11/08/19 08:06 76 20 137/93 95 11/08/19 07:05 96 11/08/19 05:40 36.7 C 71 20 148/85 H 94
--- NOTE | 2019-11-08 18:42 | XRay Report ---
XR lumbar spine 2-3V HISTORY: 64 years-old Female Standing preop x-rays preoperative exam. COMPARISON: CT abdomen and pelvis of same day TECHNIQUE: 3 views of the lumbar spine FINDINGS: 5 nonrib-bearing lumbar type vertebral segments are present. Mildly demineralized appearance of the b ones. There is moderate L4-L5 and L5-S1 disc space narrowing. There is a least mild multilevel disc s pace narrowing with spondylitic spurring. Remote appearing Schmorl's node within the superior endplat e L1. Calcified plaque of the abdominal aorta. IMPRESSION: No acute fracture or subluxation. ACT 112: Negative or not required by law. The above report was generated using voice recognition software. It may contain grammatical, syntax o r spelling errors. Electronically signed by: Ozzy Jimenez M.D. 11/08/2019 6:40 PM
[2019-11-08] MEDS: ACETAMINOPHEN 325 MG TAB PO PRN (20:03)
[2019-11-08] MEDS: ATORVASTATIN 10 MG TAB PO SCH (20:04)
[2019-11-08] MEDS: CITALOPRAM 20 MG TAB PO SCH (20:04)
[2019-11-08] MEDS: FAMOTIDINE 40 MG TABLET PO SCH (20:04)
[2019-11-09] MEDS: ACETAMINOPHEN 325 MG TAB PO PRN (01:23)
[2019-11-09] MEDS: MoRPHine SULFATE 2 MG/ML CARP IV PRN ×3 (02:14→11:44)
[2019-11-09] MEDS: HEPARIN SOD 5,000 UNIT/0.5 ML VIAL SQ SCH ×3 (05:49→22:18)
--- NOTE | 2019-11-09 07:43 | Hospitalist Progress Note ---
Date of Service November 09, 2019 Assessment & Plan (1) Left lumbar radiculopathy: Radicular symptoms. Ct Abdomen Pelvis IMPRESSION: 1. There are no acute infectious or inflammatory findings in the abdomen or pelvis. 2. There is a left lateral disc herniation with a superiorly extruded fragment seen at L4-L5. 3. The endometrium is prominent for age measuring up to 11 mm. There is also nonspecific prominence of the left ovary. These findings are not well evaluated by CT and follow-up with a pelvic ultrasound and gynecology assessment is recommended for further evaluation. 4. Moderate colonic diverticulosis without CT evidence of acute diverticulitis. 5. Hepatomegaly and mild steatosis Ortho, Yakov Uribe. MRI, lumbar spine IMPRESSION: 1. Moderate-sized left paracentral disc extrusion at L4-L5 with superior subligamentous migration that has mildly increased in size since MRI of February 23, 2018. This results in severe narrowing of the left lateral recess at this level. 2. Otherwise, mild multilevel degenerative disc disease and moderate mu ltilevel facet arthrosis within the lumbar spine. will attempt to adjust pain control but not satisfactorilly treated (2) Hyperlipidemia: typically on atorvostatin 10 mg (3) Rheumatoid arthritis: pt typically is on methotrexate, daily prednisone and etanercept. will watch for steroid deficiency (4) Hypertension: lisinopril and hydrochlorothiazide typically will hold diuretic (5) Asthma: (6) Depression: typically is on citalopram (7) Anxiety: (8) Chronic back pain: (9) Morbid obesity: Admission and Anticipated Discharge Date Admission Date: November 08, 2019 Subjective Patient has achieved some pain relief but mostly from immobilization. Patient does have confirmation of her protocol compromise per MRI scan slated for upcoming orthopedic spine surgery Review of Systems Review of Systems: Mild distress and fatigue her pain becomes moderate to severe with minimal movement especially with sitting up no headache, blurry or double vision no speech or swallowing issues no chest pain, pressure or palpitations no shortness of breath, cough or wheezes no abdominal pain, nausea or vomiting, has had challenges with constipation no dysuria, hematuria or frequency no focal joint pain or swelling Started back pain rating down the back of her left leg with associated paresthesias which is positional and intense when occurs no bruising, bleeding or rashes no focal signs of weakness is of some sensation of altered or reduced sensation of her left leg at times no complaints or anxiety or depression. Physical Exam Physical Exam: The patient appeared well nourished and normally developed. He is in moderate pain at time of my examination Vital signs as documented. Head exam is normocephalic atraumatic no scleral icterus Neck is without JVD, thyromegaly, or carotid bruits. Lungs are clear to auscultation, no focal loss of breath sounds Cardiac exam, Rhythm is regular.. No murmurs, rubs or gallops. Abdominal exam reveals normal bowel sounds, soft non tender, no masses Extremities are nonedematous and positive straight leg raising sign on the left Neurologic exam is alert and oriented, no focal loss of strength or sensation toes upgoing bilaterally Skin is without bruises or rashes Psychologically is without concerns for anxiety or depression. Results & Data Results & Data ([facility]) Vital Signs (Past 12 Hours) Vital Signs Temp Pulse Resp BP Pulse Ox 11/09/19 07:24 97.9 F 59 L 16 158/83 H 96 11/08/19 22:52 98.2 F 65 18 114/75 95 PG Care Time/CCT Total # of Minutes Spent Total Time Spent with Patient: Total time spent is greater than 50% in coordination of care (as documented) at patient's floor/unit and/or counseling patient: Coding Level of Care Code 37511 Subseq Hosp Care Lvl 2 Diagnoses Left lumbar radiculopathy M54.16 Hyperlipidemia E78.5 Rheumatoid arthritis M06.9 Hypertension I10 Asthma J45.909 Depression F32.9 Anxiety F41.9 Chronic back pain M54.9; G89.29 Morbid obesity E66.01
[2019-11-09] MEDS ORDERED: fentaNYL citrate 100 MCG/2 ML VIAL ONE (07:50)
[2019-11-09] MEDS ORDERED: MIDAZOLAM HCL 1 MG/ML 2ML VIAL ONE ×2 (07:50)
[2019-11-09] MEDS ORDERED: DexMEDEtomidine HCL IV 100 MCG/ML VIAL ONE (08:00)
--- NOTE | 2019-11-09 08:01 | Anesthesiology Consultation ---
Date of Service November 09, 2019 Covid 19 negative on 10/17/19. Assessment & Plan (1) Encounter for pre-operative examination: Chart Review Chart Review: Acceptable Risk for Surgery and Patient NOT seen in Pre Admission Testing Consults Requested none History Height/Weight Height: 5 ft 7 in Weight: 113.2 kg Allergies Allergy/AdvReac Type Severity Reaction Status Date / Time cat dander Allergy Intermediate Wheezing Verified 11/08/19 05:47 levofloxacin Allergy Intermediate Rash Verified 11/08/19 05:47 Medications Home Medications Medication Instructions Recorded Confirmed Last Taken folic acid 1 mg PO DAILY 01/18/18 11/08/19 11/07/19 methotrexate sodium 15 mg PO WK 01/18/18 11/08/19 11/05/19 etanercept 50 mg/mL (1 mL) 50 mg SQ WEEKLY ml 10/25/18 11/08/19 11/03/19 subcutaneous syringe atorvastatin 10 mg tablet 10 mg PO QPM #90 tab 09/28/19 11/08/19 11/07/19 celecoxib 200 mg capsule 200 mg PO BID #180 cap 09/28/19 11/08/19 11/07/19 citalopram 20 mg tablet 20 mg PO QPM #90 tab 09/28/19 11/08/19 11/07/19 hydrochlorothiazide 25 mg tablet 25 mg PO QAM #90 tab 09/28/19 11/08/19 11/07/19 lisinopril 10 mg tablet 10 mg PO QAM #90 tab 09/28/19 11/08/19 11/07/19 acetaminophen 1,000 mg PO Q6H PRN 11/04/19 11/08/19 Unknown cholecalciferol (vitamin D3) 2,000 unit PO DAILY 11/04/19 11/08/19 11/07/19 [Vitamin D3] famotidine 40 mg PO QPM 11/04/19 11/08/19 11/07/19 methylprednisolone [Medrol (Tolu)] 4 mg PO DIRECTED #21 ea 11/04/19 11/08/19 11/07/19 oxycodone 5 mg PO Q6H PRN #14 tab 11/04/19 11/08/19 Unknown prednisone 5 mg PO DAILY 11/04/19 11/08/19 Unknown sennosides-docusate sodium 1 tab-cap PO BID PRN #60 tab 11/04/19 11/08/19 Unknown [Senokot-S] Active Medications Generic Name Dose Route Start Last Admin Trade Name Freq PRN Reason Stop Dose Admin Acetaminophen 650 mg 11/08/19 11:08 11/09/19 01:23 Acetaminophen 325 Mg Tab PO 12/08/19 11:07 650 mg Q4H PRN Administration pain/fever Atorvastatin Calcium 10 mg 11/08/19 21:00 11/08/19 20:04 Atorvastatin 10 Mg Tab PO 12/08/19 20:59 10 mg QPM YULISA Administration Citalopram Hydrobromide 20 mg 11/08/19 21:00 11/08/19 20:04 Citalopram 20 Mg Tab PO 12/08/19 20:59 20 mg QPM YULISA Administration Famotidine 40 mg 11/08/19 21:00 11/08/19 20:04 Famotidine 40 Mg Tablet PO 12/08/19 20:59 40 mg QPM YULISA Administration Heparin Sodium (Porcine) 5,000 units 11/08/19 14:00 11/09/19 05:49 Heparin Sod 5,000 Unit/0.5 Ml Vial SQ 12/08/19 13:59 5,000 units Q8 YULISA Administration Morphine Sulfate 2 mg 11/08/19 11:12 11/09/19 06:11 Morphine Sulfate 2 Mg/Ml Carp IV 11/22/19 11:11 2 mg Q4H PRN Administration Severe Pain Past Medical History Medical History Anxiety Asthma Chronic back pain Chronic left sacroiliac joint pain Claustrophobia Depression Hyperlipidemia Hypertension Morbid obesity Rheumatoid arthritis Past Family History Family History Mother Family hx of colon cancer Father Family history of diabetes mellitus Family/Other Family history of diabetes mellitus Past Surgical History Surgical History History of cataract surgery BILATERAL History of colonoscopy History of total knee replacement BILATERAL S/P epidural steroid injection lumbar Social History Smoking Status: Never smoker Hx Alcohol Use: No Hx Substance Use: No substance use type: does not use Physical Exam Vital Signs Last Vital Signs Temp 36.6 C 11/09/19 07:24 Pulse 59 L 11/09/19 07:24 Resp 16 09/10/20 07:24 BP 158/83 H 11/09/19 07:24 Pulse Ox 96 11/09/19 07:24 Testing Laboratory Results 11/08/19 07:00 11/08/19 07:00 Urine Color Yellow 11/08/19 08:00 Urine Appearance Clear (Clear) 11/08/19 08:00 Urine pH 6.0 (4.5-7.5) 11/08/19 08:00 Ur Specific [place] 1.029 (1.000-1.030) 11/08/19 08:00 Urine Protein Negative (Negative) 11/08/19 08:00 Urine Glucose (UA) Negative (Negative) 11/08/19 08:00 Urine Ketones Negative (Negative) 11/08/19 08:00 Urine Nitrite Negative (Negative) 11/08/19 08:00 Ur Leukocyte Esterase Trace (Negative) H 11/08/19 08:00 Urine WBC (Auto) 5-10 /hpf (0-5) H 11/08/19 08:00 Urine RBC (Auto) 0-4 /hpf (0-4) 11/08/19 08:00 U Hyaline Cast (Auto) 1-5 /lpf (0-5) 11/08/19 08:00 U Epithel Cells (Auto) >30 /lpf (0-5) H 11/08/19 08:00 Urine Bacteria (Auto) Negative (Negative) 11/08/19 08:00
[2019-11-09] MEDS ORDERED: PHENYLEPHRINE 100MCG/ML 5ML SYR IV PRN (08:02)
[2019-11-09] MEDS ORDERED: ePHEDrine sulfate 50 MG/ML AMP IV PRN (08:02)
[2019-11-09] MEDS ORDERED: ATROPINE SULFATE 0.1 MG/ML 10ML SYR IV PRN (08:02)
[2019-11-09] MEDS ORDERED: fentaNYL citrate 100 MCG/2 ML VIAL IV PRN (08:02)
[2019-11-09] MEDS ORDERED: LABETALOL HCL IV 5 MG/ML 20ML IV PRN (08:02)
[2019-11-09] MEDS ORDERED: ONDANSETRON INJ 2 MG/ML 2 ML VIAL IV PRN (08:02)
[2019-11-09] MEDS ORDERED: KETOROLAC 30 MG/ML VIAL ONE (09:16)
--- NOTE | 2019-11-09 09:49 | Anesthesiology Progress Note ---
Date of Service November 09, 2019 Anesthesia Post Procedure Vital Signs Vital Signs: Temp Pulse Pulse Resp BP BP Pulse Ox 11/09/19 09:30 52 L 14 90/67 L 93 11/09/19 09:23 36.6 C 55 L 16 97/70 L 94 11/09/19 07:24 36.6 C 59 L 16 158/83 H 96 11/08/19 22:52 36.8 C 65 18 114/75 95 11/08/19 15:20 36.7 C 67 18 115/66 96 11/08/19 13:43 66 118/70 11/08/19 12:56 36.8 C 56 L 16 131/79 94 11/08/19 12:38 36.8 C 56 L 16 131/79 94 11/08/19 11:45 63 20 152/86 H 93 11/08/19 11:06 63 20 148/97 H 96 11/08/19 09:57 58 L 20 132/74 94 Pain Intensity Back: Pain Intensity: 4 Transfer of Care Handoff Completed per policy Notes Mental Status: alert / awake / arousable and participated in evaluation Patient Amnestic to Procedure: Yes Nausea / Vomiting: adequately controlled Pain: adequately controlled Airway Patency, RR, SpO2: stable & adequate BP & HR: stable & adequate Hydration State: stable & adequate Anesthetic Complications: no major complications apparent and Pt Satisfied with anesthetic care
--- NOTE | 2019-11-09 09:56 | Magnetic Resonance Report ---
MRI OF THE LUMBAR SPINE WITHOUT CONTRAST CLINICAL HISTORY: lumbar back pain COMPARISON STUDY: Lumbar spine MRI February 23, 2018. Lumbar spine radiographs November 08, 2019. TECHNIQUE: Utilizing a 1.5 Diane magnet and dedicated coil, multiplanar, multiecho imaging of the marybeth ar spine was performed without IV contrast. FINDINGS: For purposes of numbering on this exam, the L5-S1 disc space is assigned to axial image 27of 30. Alig nment of the lumbar spine is anatomic. Vertebral body heights are maintained. There is no suspicious marrow replacement. There are several Schmorl's nodes within lower thoracic and upper lumbar spine. T here is no intracanalicular mass or fluid collection. The conus terminates at the lower L2 level. Par avertebral soft tissues are unremarkable. L1-2: The central canal and neural foramen are patent. L2-3: There is a tiny left paracentral disc protrusion with minimal superior subligamentous migration . This results in mild narrowing of the left lateral recess. Central canal and neural foramen are pat ent. L3-4: There is mild disc bulge. There is facet arthrosis. Small superimposed left paracentral disc pr otrusion is noted. There is mild narrowing of the left lateral recess. Central canal and neural nathaly en are patent. L4-5: Note is made of disc space narrowing. There is a left paracentral disc extrusion with superior subligamentous migration that has increased since MRI of February 23, 2018 and corresponds to the fin ding on CT of November 08, 2019. This measures 9 mm x 8 mm. There is severe narrowing of the left lat eral recess. There is facet arthrosis. Central canal is patent. There is mild narrowing of the left n eural foramen. Right neural foramen is patent. L5-S1: Central canal and neural foramen are patent. There is facet arthrosis. IMPRESSION: 1. Moderate-sized left paracentral disc extrusion at L4-L5 with superior subligamentous migration kash t has mildly increased in size since MRI of February 23, 2018. This results in severe narrowing of th e left lateral recess at this level. 2. Otherwise, mild multilevel degenerative disc disease and moderate multilevel facet arthrosis withi n the lumbar spine. ACT 112: Negative or not required by law. Electronically signed by: Silviano Damon M.D. 11/09/2019 9:54 AM
[2019-11-09] MEDS: FOLIC ACID 1 MG TAB PO SCH (10:29)
[2019-11-09] MEDS: hydroCHLOROthiazide 25 MG TAB PO SCH (10:29)
[2019-11-09] MEDS: CHOLECALCIFEROL 1,000 UNITS 25 MCG TAB PO SCH (10:29)
[2019-11-09] MEDS: lisinopriL 10 MG TAB PO SCH (10:29)
[2019-11-09] MEDS ORDERED: Nursing to Pharmacy Communication SCH (10:30)
--- NOTE | 2019-11-09 12:26 | Orthopedic Progress Note ---
Date of Service November 09, 2019 Assessment & Plan (1) Herniated nucleus pulposus, L4-5 left: Admission and Anticipated Discharge Date Admission Date: November 08, 2019 Patient had an MRI completed this a.m. I reviewed the films personally and have discussed this with the patient and her family. She does have evidence of marked spinal stenosis facet hypertrophy at L4-L5 with anterior listhesis. There is a massive disc herniation on the left with cephalad migration causing significant canal encroachment and neural compression. Subsequently we discussed surgical invention. It would require wide decompression addressing the facet disease adding to instability. This would subsequently require stabilization by way of fusion. It would also include a complete discectomy with a herniation resides. Risk benefits pros cons and alternatives were outli luis in detail. Risk include but not limited to from anesthesia blindness stroke paralysis nerve damage blood loss current transfusion infection requiring reoperation passively marked improvement of her radiculopathy and ambulation. This time we will begin the process of scheduling surgery. Subjective Patient continues to have severe left leg pain and inability to ambulate. Physical Exam Physical Exam: Patient is comfortable in bed. Continued breakaway weakness to left lower extremity and tension signs. Results & Data ([facility]) Vital Signs (Past 12 Hours) Vital Signs Temp Pulse Pulse Resp BP Pulse Ox 11/09/19 12:06 69 16 124/75 96 11/09/19 10:27 66 12 137/85 94 11/09/19 10:03 36.5 C 52 L 12 102/64 93 11/09/19 09:30 52 L 14 90/67 L 93 11/09/19 09:23 36.6 C 55 L 16 97/70 L 94 11/09/19 07:24 36.6 C 59 L 16 158/83 H 96
[2019-11-09] MEDS: MoRPHine SULFATE 4 MG/ML 1 ML CARP\\VIAL IV PRN (17:05)
[2019-11-09] MEDS: CITALOPRAM 20 MG TAB PO SCH (20:19)
[2019-11-09] MEDS: FAMOTIDINE 40 MG TABLET PO SCH (20:20)
[2019-11-09] MEDS: ATORVASTATIN 10 MG TAB PO SCH (20:20)
[2019-11-09] MEDS: OXYCODONE HCL IR 5 MG TAB (IMMEDIATE RELEASE) PO PRN (20:24)
[2019-11-09] MEDS: ACETAMINOPHEN 500 MG TAB PO SCH (20:25)
[2019-11-09] MEDS: DOCUSATE SODIUM/SENNA 50/8.6MG TAB PO SCH (20:26)
[2019-11-10] MEDS: MoRPHine SULFATE 4 MG/ML 1 ML CARP\\VIAL IV PRN (01:50)
[2019-11-10] MEDS: HEPARIN SOD 5,000 UNIT/0.5 ML VIAL SQ SCH ×3 (05:44→21:52)
[2019-11-10] MEDS: OXYCODONE HCL IR 5 MG TAB (IMMEDIATE RELEASE) PO PRN (05:51)
[2019-11-10] MEDS: MoRPHine SULFATE 2 MG/ML CARP IV PRN (05:59)
[2019-11-10] MEDS: ACETAMINOPHEN 500 MG TAB PO SCH ×2 (07:50→20:32)
[2019-11-10] MEDS ORDERED: KETOROLAC 30 MG/ML VIAL IV ONE (08:15)
[2019-11-10] MEDS: FOLIC ACID 1 MG TAB PO SCH (09:08)
[2019-11-10] MEDS: hydroCHLOROthiazide 25 MG TAB PO SCH (09:08)
[2019-11-10] MEDS: lisinopriL 10 MG TAB PO SCH (09:09)
[2019-11-10] MEDS: CHOLECALCIFEROL 1,000 UNITS 25 MCG TAB PO SCH (09:09)
[2019-11-10] MEDS: DOCUSATE SODIUM/SENNA 50/8.6MG TAB PO SCH ×2 (09:17→20:32)
[2019-11-10] MEDS ORDERED: NALOXONE HCL 0.4 MG/1 ML VIAL/CARP IV PRN (10:58)
[2019-11-10] MEDS: HYDROmorphone PCA 30 MG/30 ML IV PRN ×2 (12:24→19:04)
[2019-11-10] MEDS: SODIUM CHLORIDE 0.9% 1000ML 1,000 ML IV SCH (12:26)
[2019-11-10] MEDS: KETOROLAC TROMETHAMINE 15 MG/ML VIAL IV PRN ×2 (17:24→23:45)
--- NOTE | 2019-11-10 17:27 | Hospitalist Progress Note ---
Date of Service November 10, 2019 Assessment & Plan (1) Left lumbar radiculopathy: Radicular symptoms. Ct Abdomen Pelvis IMPRESSION: 1. There are no acute infectious or inflammatory findings in the abdomen or pelvis. 2. There is a left lateral disc herniation with a superiorly extruded fragment seen at L4-L5. 3. The endometrium is prominent for age measuring up to 11 mm. There is also nonspecific prominence of the left ovary. These findings are not well evaluated by CT and follow-up with a pelvic ultrasound and gynecology assessment is recommended for further evaluation. 4. Moderate colonic diverticulosis without CT evidence of acute diverticulitis. 5. Hepatomegaly and mild steatosis Ortho, Yakov Uribe. MRI, lumbar spine IMPRESSION: 1. Moderate-sized left paracentral disc extrusion at L4-L5 with superior subligamentous migration that has mildly increased in size since MRI of February 23, 2018. This results in severe narrowing of the left lateral recess at this level. 2. Otherwise, mild multilevel degenerative disc disease and moderate mu ltilevel facet arthrosis within the lumbar spine. will attempt to adjust pain control by adding MAGNETO SPECIALIST continuing Toradol Tylenol and oxycodone also escalate bowel protocol given she is on more routine opiates Surgical scheduled for Sunday 11/12 will need a COVID from in-house testing were sent out to [facility] (2) Hyperlipidemia: typically on atorvostatin 10 mg (3) Rheumatoid arthritis: stable, will monitor (4) Hypertension: lisinopril and hydrochlorothiazide typically will hold diuretic (5) Asthma: (6) Depression: will place on citalopram 20 mg PO HS (7) Anxiety: will resume home meds (8) Chronic back pain: as staed above DVT: hepari (9) Morbid obesity: recommend lifestyle changes Admission and Anticipated Discharge Date Admission Date: November 09, 2019 Subjective nurses and and patient are agreeable we will continue Toradol and oxycodone but institute. This patient has significant pain improved with Toradol bu MAGNETO SPECIALIST of hydromorphonet continuing to need significant parenteral pain medications we discussed the use of a MAGNETO SPECIALIST Review of Systems Review of Systems: moderate to severe with minimal movement especially with sitting up no headache, blurry or double vision no speech or swallowing issues no chest pain, pressure or palpitations no shortness of breath, cough or wheezes no abdominal pain, nausea or vomiting, has had challenges with constipation no dysuria, hematuria or frequency no focal joint pain or swelling back pain rating down the back of her left leg with associated paresthesias which is positional and intense when occurs no bruising, bleeding or rashes no focal signs of weakness is of some sensation of altered or reduced sensation of her left leg at times no complaints or anxiety or depression. Physical Exam Physical Exam: The patient appeared well nourished and normally developed. He is in moderate pain at time of my examination Vital signs as documented. Head exam is normocephalic atraumatic no scleral icterus Neck is without JVD, thyromegaly, or carotid bruits. Lungs are clear to auscultation, no focal loss of breath sounds Cardiac exam, Rhythm is regular.. No murmurs, rubs or gallops. Abdominal exam reveals normal bowel sounds, soft non tender, no masses Extremities are nonedematous and positive straight leg raising sign on the left Neurologic exam is alert and oriented, no focal loss of strength or sensation toes upgoing bilaterally Skin is without bruises or rashes Psychologically is without concerns for anxiety or depression. Results & Data Results & Data ([facility]) Vital Signs (Past 12 Hours) Vital Signs Temp Pulse Pulse Resp BP Pulse Ox 11/10/19 16:28 98.2 F 68 13 102/67 92 11/10/19 15:37 98.2 F 67 14 90/55 L 95 11/10/19 15:00 98.4 F 69 16 114/63 93 11/10/19 14:30 98.2 F 62 18 107/62 93 11/10/19 13:28 98.2 F 72 18 98/64 L 94 11/10/19 12:33 98.1 F 63 16 107/65 93 11/10/19 07:32 98.2 F 66 16 120/65 94 PG Care Time/CCT Total # of Minutes Spent Total Time Spent with Patient: Total time spent is greater than 50% in coordination of care (as documented) at patient's floor/unit and/or counseling patient: Coding Level of Care Code 15469 Subseq Hosp Care Lvl 2 Diagnoses Left lumbar radiculopathy M54.16 Hyperlipidemia E78.5 Rheumatoid arthritis M06.9 Hypertension I10 Asthma J45.909 Depression F32.9 Anxiety F41.9 Chronic back pain M54.9; G89.29 Morbid obesity E66.01
[2019-11-10] MEDS: CITALOPRAM 20 MG TAB PO SCH (20:32)
[2019-11-10] MEDS: ATORVASTATIN 10 MG TAB PO SCH (20:33)
[2019-11-10] MEDS: FAMOTIDINE 40 MG TABLET PO SCH (20:34)
[2019-11-11] MEDS: HEPARIN SOD 5,000 UNIT/0.5 ML VIAL SQ SCH ×3 (05:50→21:43)
[2019-11-11] MEDS: KETOROLAC TROMETHAMINE 15 MG/ML VIAL IV PRN ×3 (05:50→21:47)
[2019-11-11 07:16] LABS: Hematocrit (blood only) 38.5 % (37-47); Hemoglobin 12.3 g/dL (12.0-16.0); Mean Corpuscular Hemoglobin 30.1 pg (25-34); Mean Corpuscular Hgb Conc 31.9 g/dL (32-36); Mean Corpuscular Volume 94.1 fL (80-100); Mean Platelet Volume 9.4 fL (7.4-10.4); Platelet Count 204 K/uL (130-400); RDW Standard Deviation 50.7 fL (36.4-46.3); Red Blood Count 4.09 M/uL (4.2-5.4); White Blood Count 9.28 K/uL (4.8-10.8)
[2019-11-11] MEDS: HYDROmorphone PCA 30 MG/30 ML IV PRN ×2 (07:17→19:16)
[2019-11-11] MEDS: ACETAMINOPHEN 500 MG TAB PO SCH ×2 (07:51→21:44)
[2019-11-11] MEDS: FOLIC ACID 1 MG TAB PO SCH (11:07)
[2019-11-11] MEDS: DOCUSATE SODIUM/SENNA 50/8.6MG TAB PO SCH ×2 (11:08→21:44)
[2019-11-11] MEDS: hydroCHLOROthiazide 25 MG TAB PO SCH (11:08)
[2019-11-11] MEDS: lisinopriL 10 MG TAB PO SCH (11:09)
[2019-11-11] MEDS: CHOLECALCIFEROL 1,000 UNITS 25 MCG TAB PO SCH (11:09)
[2019-11-11] MEDS: POLYETHYLENE (MIRALAX) 17 GM PACK PO SCH (14:47)
--- NOTE | 2019-11-11 15:56 | Hospitalist Progress Note ---
Date of Service November 11, 2019 Assessment & Plan (1) Left lumbar radiculopathy: Radicular symptoms. Ct Abdomen Pelvis IMPRESSION: 1. There are no acute infectious or inflammatory findings in the abdomen or pelvis. 2. There is a left lateral disc herniation with a superiorly extruded fragment seen at L4-L5. 3. The endometrium is prominent for age measuring up to 11 mm. There is also nonspecific prominence of the left ovary. These findings are not well evaluated by CT and follow-up with a pelvic ultrasound and gynecology assessment is recommended for further evaluation. 4. Moderate colonic diverticulosis without CT evidence of acute diverticulitis. 5. Hepatomegaly and mild steatosis Ortho, Yakov Uribe. MRI, lumbar spine IMPRESSION: 1. Moderate-sized left paracentral disc extrusion at L4-L5 with superior subligamentous migration that has mildly increased in size since MRI of February 23, 2018. This results in severe narrowing of the left lateral recess at this level. 2. Otherwise, mild multilevel degenerative disc disease and moderate mu ltilevel facet arthrosis within the lumbar spine. 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 continuing Toradol Tylenol and oxycodone also escalate bowel protocol given she is on more routine opiates Surgical scheduled for Sunday 11/12 will need a COVID from in-house testing nasopharyngeal swab ordered (2) Hyperlipidemia: typically on atorvostatin 10 mg (3) Rheumatoid arthritis: She is on chronic suppressive prednisone therapy likely will need stress dose after surgery (4) Hypertension: lisinopril and hydrochlorothiazide typically will hold diuretic (5) Asthma: (6) Depression: will place on citalopram 20 mg PO HS (7) Chronic back pain: Now worsened with herniated disc and impingement DVT: heparin (8) Morbid obesity: recommend lifestyle changes Admission and Anticipated Discharge Date Admission Date: November 09, 2019 Subjective Patient feels her pain is adequately controlled with her EXPORT SALES MANAGER. Additionally she had a bowel movement on 11/09 she is tentatively scheduled for surgery on 914 at 1255 Review of Systems Review of Systems: moderate to severe with minimal movement especially with sitting up no headache, blurry or double vision no speech or swallowing issues no chest pain, pressure or palpitations no shortness of breath, cough or wheezes no abdominal pain, nausea or vomiting, has had challenges with constipation no dysuria, hematuria or frequency no focal joint pain or swelling back pain rating down the back of her left leg worse with position improved with rest with associated paresthesias no bruising, bleeding or rashes no focal signs of weakness is of some sensation of altered or reduced sensation of her left leg at times no complaints or anxiety or depression. Physical Exam Physical Exam: The patient appeared well nourished and normally developed. He is in moderate pain at time of my examination Vital signs as documented. Head exam is normocephalic atraumatic no scleral icterus Neck is without JVD, thyromegaly, or carotid bruits. Lungs are clear to auscultation, no focal loss of breath sounds Cardiac exam, Rhythm is regular.. No murmurs, rubs or gallops. Abdominal exam reveals normal bowel sounds, soft non tender, no masses Extremities are nonedematous and positive straight leg raising sign on the left Neurologic exam is alert and oriented, no focal loss of strength or sensation toes upgoing bilaterally Skin is without bruises or rashes Psychologically is without concerns for anxiety or depression. Results & Data Results & Data ([facility]) Vital Signs (Past 12 Hours) Vital Signs Temp Pulse Resp BP Pulse Ox 11/11/19 15:50 98.1 F 62 18 97/58 L 98 11/11/19 07:35 97.9 F 67 16 97/60 L 97 PG Care Time/CCT Total # of Minutes Spent Total Time Spent with Patient: Total time spent is greater than 50% in coordination of care (as documented) at patient's floor/unit and/or counseling patient: Coding Level of Care Code 82106 Subseq Hosp Care Lvl 2 Diagnoses Left lumbar radiculopathy M54.16 Hyperlipidemia E78.5 Rheumatoid arthritis M06.9 Hypertension I10 Asthma J45.909 Depression F32.9 Chronic back pain M54.9; G89.29 Morbid obesity E66.01
[2019-11-11] MEDS: SODIUM CHLORIDE 0.9% 1000ML 1,000 ML IV SCH (18:32)
[2019-11-11] MEDS: ATORVASTATIN 10 MG TAB PO SCH (21:44)
[2019-11-11] MEDS: CITALOPRAM 20 MG TAB PO SCH (21:44)
[2019-11-11] MEDS: FAMOTIDINE 40 MG TABLET PO SCH (21:44)
[2019-11-12] MEDS: HEPARIN SOD 5,000 UNIT/0.5 ML VIAL SQ SCH (05:32)
[2019-11-12] MEDS: KETOROLAC TROMETHAMINE 15 MG/ML VIAL IV PRN ×3 (06:08→21:38)
[2019-11-12] MEDS: HYDROmorphone PCA 30 MG/30 ML IV PRN ×2 (07:03→19:11)
[2019-11-12] MEDS: POLYETHYLENE (MIRALAX) 17 GM PACK PO SCH (09:38)
[2019-11-12] MEDS: FOLIC ACID 1 MG TAB PO SCH (09:43)
[2019-11-12] MEDS: ACETAMINOPHEN 500 MG TAB PO SCH ×2 (09:43→21:27)
[2019-11-12] MEDS: CHOLECALCIFEROL 1,000 UNITS 25 MCG TAB PO SCH (09:44)
[2019-11-12] MEDS: DOCUSATE SODIUM/SENNA 50/8.6MG TAB PO SCH ×2 (09:44→21:28)
[2019-11-12] MEDS: hydroCHLOROthiazide 25 MG TAB PO SCH (09:45)
[2019-11-12] MEDS: lisinopriL 10 MG TAB PO SCH (09:45)
--- NOTE | 2019-11-12 11:29 | Orthopedic Progress Note ---
Date of Service November 12, 2019 Assessment & Plan (1) Herniated nucleus pulposus, L4-5 left: Admission and Anticipated Discharge Date Admission Date: November 09, 2019 We will make her n.p.o. after midnight plan for decompression fusion L4-5 in a.m. Subjective Patient continued to complain of severe left leg pain inability ambulate. Physical Exam Physical Exam: Patient is in bed in obvious distress. Neurologically intact Results & Data ([facility]) Vital Signs (Past 12 Hours) Vital Signs Temp Pulse Resp BP Pulse Ox 11/12/19 11:25 37.1 C 72 16 118/74 95 11/12/19 07:23 36.9 C 73 16 116/73 95 11/12/19 04:34 36.8 C 78 16 115/77 97
--- NOTE | 2019-11-12 11:56 | Hospitalist Progress Note ---
Date of Service November 12, 2019 Assessment & Plan (1) Left lumbar radiculopathy: Radicular symptoms. Ct Abdomen Pelvis IMPRESSION: 1. There are no acute infectious or inflammatory findings in the abdomen or pelvis. 2. There is a left lateral disc herniation with a superiorly extruded fragment seen at L4-L5. 3. The endometrium is prominent for age measuring up to 11 mm. There is also nonspecific prominence of the left ovary. These findings are not well evaluated by CT and follow-up with a pelvic ultrasound and gynecology assessment is recommended for further evaluation. 4. Moderate colonic diverticulosis without CT evidence of acute diverticulitis. 5. Hepatomegaly and mild steatosis Ortho, Yakov Uribe. MRI, lumbar spine IMPRESSION: 1. Moderate-sized left paracentral disc extrusion at L4-L5 with superior subligamentous migration that has mildly increased in size since MRI of February 23, 2018. This results in severe narrowing of the left lateral recess at this level. 2. Otherwise, mild multilevel degenerative disc disease and moderate mu ltilevel facet arthrosis within the lumbar spine. pain control by [employer]SE continuing Toradol Tylenol and oxycodone also escalate bowel protocol given she is on more routine opiates Surgical scheduled for Sunday 11/12 will need a COVID from in-house testing nasopharyngeal swab ordered (2) Hyperlipidemia: typically on atorvostatin 10 mg (3) Rheumatoid arthritis: She is on chronic suppressive prednisone therapy likely will need stress dose after surgery (4) Hypertension: lisinopril and hydrochlorothiazide typically will hold diuretic (5) Asthma: (6) Depression: citalopram 20 mg PO HS (7) Chronic back pain: Now worsened with herniated disc and impingement DVT: heparin (8) Morbid obesity: recommend lifestyle changes Admission and Anticipated Discharge Date Admission Date: November 09, 2019 Subjective Patient continued to complain of severe positional lower back and radicular left leg pain inability ambulate. Review of Systems Review of Systems: moderate to severe with minimal movement especially with sitting up no headache, blurry or double vision no speech or swallowing issues no chest pain, pressure or palpitations no shortness of breath, cough or wheezes no abdominal pain, nausea or vomiting, has had challenges with constipation no dysuria, hematuria or frequency no focal joint pain or swelling back pain remains rating down the back of her left leg worse with position improved with rest with associated paresthesias no bruising, bleeding or rashes no focal signs of weakness is of some sensation of altered or reduced sensation of her left leg at times no complaints or anxiety or depression. Physical Exam Physical Exam: The patient appeared well nourished and normally developed. Vital signs as documented. Head exam is normocephalic atraumatic no scleral icterus Neck is without JVD, thyromegaly, or carotid bruits. Lungs are clear to auscultation, no focal loss of breath sounds Cardiac exam, Rhythm is regular.. No murmurs, rubs or gallops. Abdominal exam reveals normal bowel sounds, soft non tender, no masses Extremities are nonedematous and positive straight leg raising sign on the left Neurologic exam is alert and oriented, slighlty sedate, no focal loss of strength or sensation toes upgoing bilaterally Skin is without bruises or rashes Psychologically is without concerns for anxiety or depression. Results & Data Results & Data ([facility]) Vital Signs (Past 12 Hours) Vital Signs Temp Pulse Resp BP Pulse Ox 11/12/19 11:25 98.8 F 72 16 118/74 95 11/12/19 07:23 98.4 F 73 16 116/73 95 11/12/19 04:34 98.2 F 78 16 115/77 97 PG Care Time/CCT Total # of Minutes Spent Total Time Spent with Patient: Total time spent is greater than 50% in coordination of care (as documented) at patient's floor/unit and/or counseling patient: Coding Level of Care Code 58292 Subseq Hosp Care Lvl 2 Diagnoses Left lumbar radiculopathy M54.16 Hyperlipidemia E78.5 Rheumatoid arthritis M06.9 Hypertension I10 Asthma J45.909 Depression F32.9 Chronic back pain M54.9; G89.29 Morbid obesity E66.01
[2019-11-12] MEDS: SODIUM CHLORIDE 0.9% 1000ML 1,000 ML IV SCH (15:21)
[2019-11-12] MEDS: FAMOTIDINE 40 MG TABLET PO SCH (21:28)
[2019-11-12] MEDS: ATORVASTATIN 10 MG TAB PO SCH (21:28)
[2019-11-12] MEDS: CITALOPRAM 20 MG TAB PO SCH (21:28)
[2019-11-13] MEDS: KETOROLAC TROMETHAMINE 15 MG/ML VIAL IV PRN ×2 (02:23→09:33)
[2019-11-13 06:10] LABS: Hematocrit (blood only) 37.5 % (37-47); Hemoglobin 11.8 g/dL (12.0-16.0); Mean Corpuscular Hemoglobin 30.6 pg (25-34); Mean Corpuscular Hgb Conc 31.5 g/dL (32-36); Mean Corpuscular Volume 97.2 fL (80-100); Mean Platelet Volume 9.3 fL (7.4-10.4); Platelet Count 182 K/uL (130-400); RDW Coefficient of Variation 14.9 % (11.5-14.5); RDW Standard Deviation 52.9 fL (36.4-46.3); Red Blood Count 3.86 M/uL (4.2-5.4)
[2019-11-13 06:27] LABS: Partial Thromboplastin Ratio 0.8; Partial Thromboplastin Time 22.4 Seconds (21.0-31.0); Prothrombin Time 10.5 Seconds (9.0-12.0)
[2019-11-13 06:52] LABS: BUN Creatinine Ratio 27.3 (10-20); Calcium 9.7 mg/dl (8.5-10.1); Creatinine Clr Calc Pharmacy 88.7 ml/min; Est GFR (African American) 87.7; Est GFR (Non-African American) 75.7; Potassium 4.5 mmol/L (3.5-5.1)
[2019-11-13] MEDS: ACETAMINOPHEN 500 MG TAB PO SCH ×2 (07:55→20:39)
[2019-11-13] MEDS: hydroCHLOROthiazide 25 MG TAB PO SCH (07:55)
[2019-11-13] MEDS: CHOLECALCIFEROL 1,000 UNITS 25 MCG TAB PO SCH (07:55)
[2019-11-13] MEDS: FOLIC ACID 1 MG TAB PO SCH (07:55)
[2019-11-13] MEDS: DOCUSATE SODIUM/SENNA 50/8.6MG TAB PO SCH ×2 (07:55→20:25)
[2019-11-13] MEDS: POLYETHYLENE (MIRALAX) 17 GM PACK PO SCH (07:55)
[2019-11-13] MEDS: lisinopriL 10 MG TAB PO SCH (07:56)
[2019-11-13] MEDS: SODIUM CHLORIDE 0.9% 1000ML 1,000 ML IV SCH ×3 (12:11→23:12)
[2019-11-13] MEDS ORDERED: HYDROmorphone INJ 2 MG/ML SYR/VIAL ONE (12:15)
[2019-11-13] MEDS ORDERED: PROPOFOL IV EMULSION 10 MG/ML 20 ML VIAL IV ONE (12:16)
[2019-11-13] MEDS ORDERED: ROCURONIUM BROMIDE 10 MG/ML 5 ML VIAL IV ONE (12:16)
[2019-11-13] MEDS ORDERED: fentaNYL citrate 100 MCG/2 ML VIAL ONE (12:16)
[2019-11-13] MEDS ORDERED: MIDAZOLAM HCL 1 MG/ML 2ML VIAL ONE (12:16)
[2019-11-13] MEDS ORDERED: LIDOCAINE HCL 2% 2 ML VIAL/AMP(20MG/ML) INFIL ONE (12:16)
[2019-11-13] MEDS ORDERED: ATROPINE SULFATE 0.1 MG/ML 10ML SYR IV PRN (12:32)
[2019-11-13] MEDS ORDERED: ONDANSETRON INJ 2 MG/ML 2 ML VIAL IV PRN ×2 (12:32→17:05)
[2019-11-13] MEDS ORDERED: ePHEDrine sulfate 50 MG/ML AMP IV PRN (12:32)
--- NOTE | 2019-11-13 12:53 | Anesthesiology Consultation ---
Date of Service November 13, 2019 Assessment & Plan (1) Encounter for pre-operative examination: Chart Review Chart Review: Acceptable Risk for Surgery Consults Requested none ASA ASA3 Proposed Anesthesia Anesthesia Type: General Risk / Benefits Reviewed With: PT / POA / Parent / Guardian, Accepts Plan and Informed Consent Obtained History Surgery Operation Date: 11/09/19 07:35 Proposed Procedures p MRI with Anesthesia Sedation - Pérez Anglin MD Operation Date: 11/13/19 12:55 Proposed Procedures p L4-L5 Decompression and Fusion with Instrumentation - Evens Uribe DO Height/Weight Height: 5 ft 7 in Weight: 113.2 kg Allergies Allergy/AdvReac Type Severity Reaction Status Date / Time cat dander Allergy Intermediate Wheezing Verified 11/08/19 05:47 levofloxacin Allergy Intermediate Rash Verified 11/08/19 05:47 Medications Home Medications Medication Instructions Recorded Confirmed Last Taken folic acid 1 mg PO DAILY 01/18/18 11/08/19 11/07/19 methotrexate sodium 15 mg PO WK 01/18/18 11/08/19 11/05/19 etanercept 50 mg/mL (1 mL) 50 mg SQ WEEKLY ml 10/25/18 11/08/19 11/03/19 subcutaneous syringe atorvastatin 10 mg tablet 10 mg PO QPM #90 tab 09/28/19 11/08/19 11/07/19 celecoxib 200 mg capsule 200 mg PO BID #180 cap 09/28/19 11/08/19 11/07/19 citalopram 20 mg tablet 20 mg PO QPM #90 tab 09/28/19 11/08/19 11/07/19 hydrochlorothiazide 25 mg tablet 25 mg PO QAM #90 tab 09/28/19 11/08/19 11/07/19 lisinopril 10 mg tablet 10 mg PO QAM #90 tab 09/28/19 11/08/19 11/07/19 acetaminophen 1,000 mg PO Q6H PRN 11/04/19 11/08/19 Unknown cholecalciferol (vitamin D3) 2,000 unit PO DAILY 11/04/19 11/08/19 11/07/19 [Vitamin D3] famotidine 40 mg PO QPM 11/04/19 11/08/19 11/07/19 methylprednisolone [Medrol (Tolu)] 4 mg PO DIRECTED #21 ea 11/04/19 11/08/1911/06/20 oxycodone 5 mg PO Q6H PRN #14 tab 11/04/19 11/08/19 Unknown prednisone 5 mg PO DAILY 11/04/19 11/08/19 Unknown sennosides-docusate sodium 1 tab-cap PO BID PRN #60 tab 11/04/19 11/08/19 Unknown [Senokot-S] Active Medications Generic Name Dose Route Start Last Admin Trade Name Freq PRN Reason Stop Dose Admin Acetaminophen 650 mg 11/08/19 11:08 11/09/19 01:23 Acetaminophen 325 Mg Tab PO 12/08/19 11:07 650 mg Q4H PRN Administration pain/fever Acetaminophen 1,000 mg 11/09/19 21:00 11/13/19 07:55 Acetaminophen 500 Mg Tab PO 12/09/19 20:59 Not Given BID YULISA Atorvastatin Calcium 10 mg 11/08/19 21:00 11/12/19 21:28 Atorvastatin 10 Mg Tab PO 12/08/19 20:59 10 mg QPM YULISA Administration Citalopram Hydrobromide 20 mg 11/08/19 21:00 11/12/19 21:28 Citalopram 20 Mg Tab PO 12/08/19 20:59 20 mg QPM YULISA Administration Famotidine 40 mg 11/08/19 21:00 11/12/19 21:28 Famotidine 40 Mg Tablet PO 12/08/19 20:59 40 mg QPM YULISA Administration Folic Acid 1 mg 11/09/19 09:00 11/13/19 07:55 Folic Acid 1 Mg Tab PO 12/09/19 08:59 Not Given DAILY YULISA Hydrochlorothiazide 25 mg 11/09/19 09:00 11/13/19 07:55 Hydrochlorothiazide 25 Mg Tab PO 12/09/19 08:59 Not Given QAM YULISA Hydromorphone HCl 30 mg 11/10/19 10:58 11/12/19 19:11 Hydromorphone Outside Sales Associate 30 Mg/30 Ml IV 11/24/19 10:57 30 mg PRN PRN Administration SIMPLEX OPERATOR Pain Titration Protocol Sodium Chloride 1,000 mls @ 15 mls/hr 11/10/19 11:00 11/13/19 12:11 Nss 1000ml IV 11/24/19 10:59 Not Given .Q24H YULISA Ketorolac Tromethamine 15 mg 11/10/19 14:00 11/13/19 09:33 Ketorolac Tromethamine 15 Mg/Ml Vial IV 11/15/19 13:59 15 mg Q6H PRN Administration Pain Lisinopril 10 mg 11/09/19 09:00 11/13/19 07:56 Lisinopril 10 Mg Tab PO 12/09/19 08:59 Not Given QAM YULISA Oxycodone HCl 10 mg 11/09/19 16:02 11/10/19 05:51 Oxycodone Hcl Ir 5 Mg Tab (Immediate Release) PO 11/22/19 11:09 10 mg Q6H PRN Administration pain Polyethylene Glycol 17 gm 11/11/19 09:00 11/13/19 07:55 Polyethylene (Miralax) 17 Gm Pack PO 12/11/19 08:59 Not Given DAILY YULISA Senna/Docusate Sodium 1 tab 11/09/19 21:00 11/13/19 07:55 Docusate Sodium/Senna 50/8.6mg Tab PO 12/09/19 20:59 Not Given BID YULISA Vitamin D 2,000 units 11/09/19 09:00 11/13/19 07:55 Cholecalciferol 1,000 Units 25 Mcg Tab PO 12/09/19 08:59 Not Given DAILY YULISA NPO Date Last Intake of Fluids: 11/12/19 Time Last Intake of Fluids: 23:50 Date Last Intake of Solids: 11/12/19 Time Last Intake of Solids: 23:50 Past Medical History Medical History Asthma Chronic back pain Chronic left sacroiliac joint pain Claustrophobia Depression Hyperlipidemia Hypertension Morbid obesity Rheumatoid arthritis Exercise / Class Metabolic Activity III < 4 Walking/Shop/Light housework Past Family History Family History Mother Family hx of colon cancer Father Family history of diabetes mellitus Family/Other Family history of diabetes mellitus Past Surgical History Surgical History History of cataract surgery BILATERAL History of colonoscopy History of total knee replacement BILATERAL S/P epidural steroid injection lumbar Past Anesthesia History No Hx of Anesthesia Complications and No Family Hx of Anesthesia Complications History of PONV No Hx of PONV and No Hx of Motion Sickness Social History Smoking Status: Never smoker Hx Alcohol Use: No Hx Substance Use: No substance use type: does not use Physical Exam Vital Signs Last Vital Signs Temp 98.2 F 11/13/19 07:46 Pulse 65 11/13/19 07:46 Resp 16 11/13/19 07:46 BP 106/68 11/13/19 07:46 Pulse Ox 93 11/13/19 07:46 ENMT Mouth: no dentition abnormality Thyromental Distance: > or= 3.5 Finger Breadths Mallampati Class: II Neck normal visual inspection Respiratory normal respiratory effort Auscultation: lungs clear to auscultation bilaterally Cardiovascular Rate/Rhythm: regular rate and regular rhythm Testing Laboratory Results 11/13/19 05:11 11/13/19 05:11 PT 10.5 Seconds (9.0-12.0) 11/13/19 05:11 INR 1.0 (0.9-1.1) 11/13/19 05:11 APTT 22.4 Seconds (21.0-31.0) 11/13/19 05:11 Urine Color Yellow 11/08/19 08:00 Urine Appearance Clear (Clear) 11/08/19 08:00 Urine pH 6.0 (4.5-7.5) 11/08/19 08:00 Ur Specific Temple 1.029 (1.000-1.030) 11/08/19 08:00 Urine Protein Negative (Negative) 11/08/19 08:00 Urine Glucose (UA) Negative (Negative) 11/08/19 08:00 Urine Ketones Negative (Negative) 11/08/19 08:00 Urine Nitrite Negative (Negative) 11/08/19 08:00 Ur Leukocyte Esterase Trace (Negative) H 11/08/19 08:00 Urine WBC (Auto) 5-10 /hpf (0-5) H 11/08/19 08:00 Urine RBC (Auto) 0-4 /hpf (0-4) 11/08/19 08:00 U Hyaline Cast (Auto) 1-5 /lpf (0-5) 11/08/19 08:00 U Epithel Cells (Auto) >30 /lpf (0-5) H 11/08/19 08:00 Urine Bacteria (Auto) Negative (Negative) 11/08/19 08:00 Blood Type A Positive 11/12/19 06:26 Antibody Screen NEGATIVE 11/12/19 06:26 Electrocardiogram Date: 11/13/19 Findings: + NSR @ (72 bpm) Minimal voltage criteria for LVH Cervical Spine Date: 06/07/18 IMPRESSION: 1. No acute fractures 2. Moderate multilevel degenerative change 3. Mild anterior listhesis of C2 on C3 likely arthritic
--- NOTE | 2019-11-13 13:00 | History & Physical Bridge Note ---
Date of Service November 13, 2019 History & Physical Bridge Note I have examined the patient, reviewed the History & Physical and in the interval since the performance of the History & Physical I have noted the following changes of clinical significance: no changes noted Patient continues to have the inability to ambulate despite Dilaudid BIOSTATISTICS TEACHER and attempt. To risk further deconditioning and development of DVT and subsequently requires emergent lumbar decompression and fusion L4-5.
[2019-11-13] MEDS ORDERED: BUPIVACAINE/EPINEPHRINE 0.25% 1:200,000 30 ML VIAL ONE (13:11)
[2019-11-13] MEDS ORDERED: BACITRACIN INJ 50,000 UNIT VIAL ONE (13:11)
[2019-11-13] MEDS ORDERED: CEFAZOLIN 250 MG/ML 1 GM VIAL ONE (14:09)
[2019-11-13] MEDS ORDERED: DEXAMETHASONE SOD INJ 4 MG/ML VIAL ONE (14:09)
[2019-11-13] MEDS ORDERED: ONDANSETRON INJ 2 MG/ML 2 ML VIAL ONE (14:09)
--- NOTE | 2019-11-13 14:09 | Electrocardiogram Report ---
Test Reason : Blood Pressure : / mmHG Vent. Rate : 072 BPM Atrial Rate : 072 BPM P-R Int : 166 ms QRS Dur : 092 ms QT Int : 400 ms P-R-T Axes : 053 -20 020 degrees QTc Int : 438 ms Normal sinus rhythm Minimal voltage criteria for LVH, may be normal variant ( Supa product ) Borderline ECG When compared with ECG of 18-FEB-2018 10:50, No significant change was found Confirmed by Jose Del Angel ([id number]) on 11/13/2019 2:09:23 PM Referred By: REFERRED SELF Confirmed By:Jose Del Angel
[2019-11-13] MEDS ORDERED: FLOSEAL HEMOSTATIC MATRIX 10ML TOP ONE (15:11)
--- NOTE | 2019-11-13 15:21 | Operative Report ---
Post Operative Report Pre & Post Diagnosis Operation Date: 11/09/19 07:35 <No data on this case meets the specified criteria> Operation Date: 11/13/19 12:55 Pre-Op Diagnosis: Herniated nucleus pulposus, L4-5 left Spondylolisthesis L4-L5 Post-Op Diagnosis: Herniated nucleus pulposus, L4-5 left Spondylolisthesis L4-L5 I identified the patient and participated in the time-out.: Yes Procedure Operation Date: 11/09/19 07:35 <No data on this case meets the specified criteria> Operation Date: 11/13/19 12:55 Actual Procedures #1 lumbar decompression with bilateral medial facetectomies and foraminotomies L3-4 and L4-5 per #2 posterior spinal fusion L4-5 per #3 placement posterior instrumentation L4-5. #4 interbody fusion L4-5. #5 placement peek cage 13 x 22 mm at L for 5. #6 placement locally harvested morselized autograft in the posterior lateral gutters. #7 placement fusion collagen sponge plan master graft in the posterior gutters and ostial amp and interbody space. Surgeon Evens Uribe, DO Riding Instructor Tamie Ring Estimated Blood Loss 450 Findings See Below The patient is 5 foot 7 inches tall weighing over 113 kg with a BMI of in excess of 39. The patient's body habitus did add significant technical difficulty requiring her deepest retractors and longus instruments in order to perform her procedure. This added at least 50% increase to the operative time. Specimens None Indications This is a 64-year-old female presents with marked decline in status and inability to ambulate and intractable leg pain. After failing course of nonoperative care having continued decline neurologically and with ability to ambulate we underwent emergent decompression and fusion. Description of Procedure Patient was met with properly case cussed all questions were addressed by them and patient was taken back to operative suite underwent intubation placed in a prone position on the Ghulam table on top of the Stu frame. All bony prominences well-padded eyes inspected to ensure no external pressure placed upon them. This point the lumbar spine was prepped and draped in the normal sterile fashion. Sharp dissection with the assistance of Bovie cautery was performed down to and exposing the lamina and transverse processes of L4 and L5. From a caudal cephalad fashion complete laminectomy of L4 partial laminectomy L3 was performed including medial facetectomies and foraminotomies to address significant stenosis. There is obvious instability with severe facet hypertrophy. Pedicle screws were then placed in L4 and L5 bilaterally with assistance of fluoroscopy and appropriate size shalom placed. A transforaminal approach on the left complete discectomy was performed endplates coated to subcortically bone and a 13 x 22 mm peek cage filled osteo-bone graft tapped in position. The rods were then locked in final position bilaterally. I then retrieved several massive fragments of disc material that had migrated cephalad from the 4 5 displacement under the L4 nerve root. The transverse processes of L4 and L5 were then burred to subcortical bleeding bone. Infuse collagen sponge master graft local autograft was placed in the posterior gutters. 15 round STEFANIE drain inserted. The incision was then closed with 1 Vicryl in the fascia 2-0 Vicryl subcutaneously and 4 Monocryl for final skin closure. Steri-Strip sterile dressings placed. Patient waken taken to PACU in stable condition. Please note spinal cord monitoring was utilized at the procedure no changes noted. Lastly Tamie Ring was present throughout the entire surgery involved the patient positioning complex portions of the surgery and final skin closure. I attest to the content of the Intraoperative Record and any orders documented therein. Any exceptions are noted below.
--- NOTE | 2019-11-13 15:27 | Fluoroscopy Report ---
INTRAOPERATIVE RADIOGRAPHS CLINICAL HISTORY: L4-L5 spinal fusion. Fluoroscopy time: 16 seconds. FINDINGS: 2 spot fluoroscopic views of the lumbar spine are presented. There has been discectomy at L 4-L5 with laminectomy and posterior fusion at this level. Interpedicular screws are present at both l evels. The orthopedic hardware appears intact. IMPRESSION: Intraoperative images from L4-L5 spinal fusion as above. Electronically signed by: Kvng Lowery M.D. 11/13/2019 3:26 PM
[2019-11-13] MEDS: fentaNYL citrate 100 MCG/2 ML VIAL IV PRN ×4 (15:55→16:10)
[2019-11-13] MEDS: HYDROmorphone INJ 1 MG/ML SYRINGE IV PRN ×4 (16:15→16:30)
--- NOTE | 2019-11-13 16:32 | Anesthesiology Progress Note ---
Date of Service November 13, 2019 Anesthesia Post Procedure Vital Signs Vital Signs: Temp Pulse Pulse Pulse Resp BP Pulse Ox 11/13/19 16:20 94 H 15 118/68 97 11/13/19 16:10 97 H 16 140/73 96 11/13/19 16:00 94 H 27 H 151/55 H 96 11/13/19 15:50 101 H 24 147/67 H 98 11/13/19 15:41 36.4 C L 105 H 22 209/101 H 98 11/13/19 07:46 36.8 C 65 16 106/68 93 11/13/19 04:02 36.7 C 68 20 99/65 L 98 11/12/19 23:55 36.7 C 69 16 99/63 L 94 11/12/19 19:51 36.5 C 67 16 95/64 L 92 Pain Intensity Back: Pain Intensity: 10 Transfer of Care Handoff Completed per policy Notes Mental Status: alert / awake / arousable and participated in evaluation Patient Amnestic to Procedure: Yes Nausea / Vomiting: adequately controlled Pain: adequately controlled Airway Patency, RR, SpO2: stable & adequate BP & HR: stable & adequate Hydration State: stable & adequate Anesthetic Complications: no major complications apparent
[2019-11-13] MEDS ORDERED: ONDANSETRON 4 MG OD TAB PO PRN (17:05)
[2019-11-13] MEDS ORDERED: DO NOT ADMINISTER PNEUMOCOCCAL VACCINE PRN (17:05)
[2019-11-13] MEDS ORDERED: METOCLOPRAMIDE HCL INJ 5 MG/ML 2 ML VIAL IV PRN (17:05)
[2019-11-13] MEDS ORDERED: PROMETHAZINE HCL 12.5 MG in SODIUM CHLORIDE 0.9% 50 ML IV PRN (17:05)
[2019-11-13] MEDS ORDERED: SOD PHOSPHATE/SOD BIPHOSPHATE ENEMA 132 ML BTL PR PRN (17:05)
[2019-11-13] MEDS ORDERED: LORazepam 0.5 MG/1 ML VIAL IV PRN (17:05)
[2019-11-13] MEDS ORDERED: FAMOTIDINE 20 MG TAB PO PRN (17:05)
[2019-11-13] MEDS ORDERED: DO NOT ADMINISTER FLU VACCINE PRN (17:05)
[2019-11-13] MEDS ORDERED: HYDROmorphone INJ 0.5 MG/0.5 ML SYR IV PRN (17:05)
[2019-11-13] MEDS ORDERED: TRAMADOL HCL 50 MG TABLET PO PRN (17:05)
[2019-11-13] MEDS ORDERED: ALUMINUM/MAGNESIUM SUSP 30 ML UDC PO PRN (17:05)
[2019-11-13] MEDS ORDERED: MAGNESIUM HYDROXIDE SUSP 30 ML UDC PO PRN (17:05)
[2019-11-13] MEDS ORDERED: bisacodyL 10 MG SUPP PR PRN (17:05)
[2019-11-13] MEDS ORDERED: NALOXONE HCL 0.4 MG/1 ML VIAL/CARP IV PRN (17:05)
[2019-11-13] MEDS ORDERED: HYDROmorphone INJ 1 MG/ML SYRINGE IV PRN (17:05)
[2019-11-13] MEDS: ACETAMINOPHEN 500 MG TAB PO PRN (17:45)
[2019-11-13] MEDS: ACETAMINOPHEN 1,000 MG/100 ML VIAL IV PRN (17:49)
[2019-11-13] MEDS: OXYCODONE HCL IR 5 MG TAB (IMMEDIATE RELEASE) PO PRN (20:24)
[2019-11-13] MEDS: CITALOPRAM 20 MG TAB PO SCH (20:25)
[2019-11-13] MEDS: LORazepam 0.5 MG TAB PO PRN ×2 (20:25→23:12)
[2019-11-13] MEDS: ATORVASTATIN 10 MG TAB PO SCH (20:26)
[2019-11-13] MEDS: FAMOTIDINE 40 MG TABLET PO SCH (20:27)
[2019-11-13] MEDS ORDERED: CHLORASEPTIC 1.4% SOLN 180 ML BTL MT PRN (21:48)
[2019-11-13] MEDS: CEFAZOLIN 2000MG 2,000 MG/15 ML SYR IV SCH (22:20)
[2019-11-14] MEDS: CEFAZOLIN 2000MG 2,000 MG/15 ML SYR IV SCH (05:30)
[2019-11-14] MEDS: POLYETHYLENE (MIRALAX) 17 GM PACK PO SCH ×3 (05:30→18:52)
[2019-11-14] MEDS: OXYCODONE HCL IR 5 MG TAB (IMMEDIATE RELEASE) PO PRN ×3 (06:04→18:51)
[2019-11-14 06:32] LABS: Hematocrit (blood only) 34.8 % (37-47); Hemoglobin 11.2 g/dL (12.0-16.0); Immature Granulocytes # (auto) 0.13 K/uL (0.00-0.02); Lymphocytes # (auto) 0.81 K/uL (1.2-3.4); Lymphocytes % (auto) 6.1 %; Mean Corpuscular Hemoglobin 30.5 pg (25-34); Mean Corpuscular Hgb Conc 32.2 g/dL (32-36); Mean Corpuscular Volume 94.8 fL (80-100); Monocytes # (auto) 0.52 K/uL (0.11-0.59); Monocytes % (auto) 3.9 %; Neutrophils # (auto) 11.82 K/uL (1.4-6.5); Platelet Count 200 K/uL (130-400); RDW Coefficient of Variation 14.6 % (11.5-14.5); RDW Standard Deviation 49.6 fL (36.4-46.3); Red Blood Count 3.67 M/uL (4.2-5.4); White Blood Count 13.28 K/uL (4.8-10.8)
[2019-11-14 07:14] LABS: BUN Creatinine Ratio 12.4 (10-20); Calcium 9.6 mg/dl (8.5-10.1); Creatinine Clr Calc Pharmacy 70.4 ml/min; Est GFR (African American) 66.4; Est GFR (Non-African American) 57.3; Potassium 4.3 mmol/L (3.5-5.1)
[2019-11-14] MEDS: ACETAMINOPHEN 1,000 MG/100 ML VIAL IV PRN (08:29)
[2019-11-14] MEDS: ACETAMINOPHEN 500 MG TAB PO SCH ×2 (08:32→21:11)
[2019-11-14] MEDS: lisinopriL 10 MG TAB PO SCH (09:47)
[2019-11-14] MEDS: CHOLECALCIFEROL 1,000 UNITS 25 MCG TAB PO SCH (09:47)
[2019-11-14] MEDS: hydroCHLOROthiazide 25 MG TAB PO SCH (09:52)
[2019-11-14] MEDS: FOLIC ACID 1 MG TAB PO SCH (09:52)
--- NOTE | 2019-11-14 13:14 | Orthopedic Progress Note ---
Date of Service November 14, 2019 Assessment & Plan (1) Herniated nucleus pulposus, L4-5 left: Admission and Anticipated Discharge Date Admission Date: November 09, 2019 This time we will continue physical therapy monitor her STEFANIE output anticipate possible discharge home Subjective Back pain controlled left leg symptoms markedly improved. Physical Exam Physical Exam: Patient is good strength testing appears comfortable. Results & Data ([facility]) Vital Signs (Past 12 Hours) Vital Signs Temp Pulse Resp BP Pulse Ox 11/14/19 11:09 36.9 C 78 16 101/66 93 11/14/19 07:14 37.0 C 98 H 16 109/70 98 11/14/19 03:43 36.9 C 109 H 20 126/72 95
--- NOTE | 2019-11-14 16:05 | Hospitalist Progress Note ---
Date of Service November 14, 2019 Assessment & Plan (1) Left lumbar radiculopathy: Radicular symptoms. MRI, lumbar spine IMPRESSION: 1. Moderate-sized left paracentral disc extrusion at L4-L5 with superior subligamentous migration that has mildly increased in size since MRI of February 23, 2018. This results in severe narrowing of the left lateral recess at this level. 2. Otherwise, mild multilevel degenerative disc disease and moderate multilevel facet arthrosis within the lumbar spine. pain control initially with SIGN MANUFACTURER, Toradol Tylenol and oxycodone also escalate bowel protocol given she is on more routine opiates Dr. Uribe took to OR on 11/12 decompression, discectomy, fusion feeling much improved on 11/13 breathing stable, + flatus, no nausea participating in therapy spoke with Dr. Uribe, hopeful for discharge on if she progresses well (2) Hyperlipidemia: typically on atorvostatin 10 mg (3) Rheumatoid arthritis: She is on chronic suppressive prednisone therapy vital and electrolytes stable, no need for Hydrocortisone at this time (4) Hypertension: lisinopril and hydrochlorothiazide (5) Asthma: (6) Depression: citalopram 20 mg PO HS (7) Chronic back pain: Now worsened with herniated disc and impingement DVT: heparin (8) Morbid obesity: recommend lifestyle changes Admission and Anticipated Discharge Date Admission Date: November 09, 2019 Subjective patient feeling much better after lumbar decompression yesterday with Dr. Uribe she had a large herniated disc, the entire disc was removed, fusion performed she can now lay on her left side which is improvement breathing well post op labs checked, Hb and WBC stable, BUN/Cr normal and electrolytes stable discussed with Dr. Uribe spoke with patient's at the bedside Review of Systems Review of Systems: All systems reviewed & are unremarkable except as noted in Subjective Respiratory: no cough and no dyspnea Cardiovascular: no chest pain and no edema Musculoskeletal: + back pain (mild, much improved); no radicular pain, no joint pain, no myalgia, no muscle weakness and no muscle atrophy Physical Exam Constitutional: well developed, + morbidly obese and comfortable; no acute distress Eyes: PERRL, conjunctivae normal, anicteric sclerae ENMT: external ear and nose normal, oropharynx normal Neck: trachea midline, no thyromegaly Respiratory: normal respiratory effort, lungs clear to auscultation Cardiovascular: RRR, no murmur, no edema Gastrointestinal (Abdomen): normal bowel sounds, soft, nontender, no hepatosplenomegaly Musculoskeletal: no cyanosis or clubbing, extremities motor strength 5/5 Skin: no rashes, warm and dry Neurologic: patellar DTR's 2+ bilat, sensation intact and PERRL, EOMI, accommodation nl, no face palsy, no dysarthria Psychiatric: A+Ox3, euthymic affect Lymphatic: no cervical or axillary lymphadenopathy Results & Data Results & Data ([facility]) Vital Signs (Past 12 Hours) Vital Signs Temp Pulse Pulse Resp BP Pulse Ox 11/14/19 15:25 36.6 C 79 16 89/57 L 91 11/14/19 11:09 36.9 C 78 16 101/66 93 11/14/19 07:14 37.0 C 98 H 16 109/70 98 Laboratory Results Laboratory Results - last 24 hr 11/14/19 11/14/19 06:13 06:13 WBC 13.28 H RBC 3.67 L Hgb 11.2 L Hct 34.8 L MCV 94.8 MCH 30.5 MCHC 32.2 RDW Std Deviation 49.6 H RDW Coeff of Jaqueline 14.6 H Plt Count 200 MPV 9.0 Immature Gran % (Auto) 1.0 Neut % (Auto) 89.0 Lymph % (Auto) 6.1 [place] % (Auto) 3.9 Eos % (Auto) 0.0 Baso % (Auto) 0.0 Neut # (Auto) 11.82 H Lymph # (Auto) 0.81 L [place] # (Auto) 0.52 Eos # (Auto) 0.00 Baso # (Auto) 0.00 Immature Gran # (Auto) 0.13 H Sodium 138 Potassium 4.3 Chloride 105 Carbon Dioxide 27 Anion Gap 6.0 BUN 13 Creatinine 1.02 Est Cr Clr Drug Dosing 70.4 Est GFR ( Amer) 66.4 Est GFR (Non-Af Amer) 57.3 BUN/Creatinine Ratio 12.4 Glucose 222 H Calcium 9.6 Medications Administered Current Inpatient Medications Acetaminophen (Acetaminophen 500 Mg Tab) 1,000 mg PO BID YULISA Stop: 12/09/19 20:59 Last Admin: 11/14/19 08:32 Dose: Not Given Documented by: Acetaminophen (Acetaminophen 500 Mg Tab) 1,000 mg PO Q8H PRN PRN Reason: MILD Pain Scale 1,2,3 & Pre PT Stop: 12/13/19 17:04 Al Hydrox/Mg Hydrox/Simethicone (Aluminum/Magnesium Susp 30 Ml Udc) 30 ml PO Q6H PRN PRN Reason: Dyspepsia Stop: 12/13/19 17:04 Atorvastatin Calcium (Atorvastatin 10 Mg Tab) 10 mg PO QPM YULISA Stop: 12/08/19 20:59 Last Admin: 11/13/19 20:26 Dose: 10 mg Documented by: Bisacodyl (Bisacodyl 10 Mg Supp) 10 mg [place] DAILY PRN PRN Reason: Constipation Stop: 12/13/19 17:04 Citalopram Hydrobromide (Citalopram 20 Mg Tab) 20 mg PO QPM YULISA Stop: 12/08/19 20:59 Last Admin: 11/13/19 20:25 Dose: 20 mg Documented by: Diphenhydramine HCl (Diphenhydramine Hcl 25 Mg Cap) 25 mg PO Q6H PRN PRN Reason: Allergic Rhinitis/Insomnia Stop: 12/13/19 17:04 Famotidine (Famotidine 40 Mg Tablet) 40 mg PO QPM YULISA Stop: 12/08/19 20:59 Last Admin: 11/13/19 20:27 Dose: 40 mg Documented by: Famotidine (Famotidine 20 Mg Tab) 20 mg PO Q12H PRN PRN Reason: Dyspepsia Stop: 12/13/19 17:04 Folic Acid (Folic Acid 1 Mg Tab) 1 mg PO DAILY YULISA Stop: 12/09/19 08:59 Last Admin: 11/14/19 09:52 Dose: 1 mg Documented by: Hydrochlorothiazide (Hydrochlorothiazide 25 Mg Tab) 25 mg PO QAM YULISA Stop: 12/09/19 08:59 Last Admin: 11/14/19 09:52 Dose: 25 mg Documented by: Hydromorphone HCl (Hydromorphone Inj 0.5 Mg/0.5 Ml Syr) 0.5 mg IV Q3H PRN PRN Reason: MOD pain (scale 4-6) & Pre PT Stop: 11/27/19 17:04 Hydromorphone HCl (Hydromorphone Inj 1 Mg/Ml Syringe) 1 mg IV Q3H PRN PRN Reason: severe pain (scale 7-10) Stop: 11/27/19 17:04 Hydroxyzine HCl (Hydroxyzine Hcl 25 Mg Tab) 25 mg PO Q8H PRN PRN Reason: Anxiety Stop: 12/13/19 17:04 Lorazepam (Ativan) 0.5 mg in 1 mls @ 0.5 mls/min IV Q8H PRN PRN Reason: Sedation/Anxiety Stop: 12/13/19 17:04 Acetaminophen (Ofirmev) 1,000 mg in 100 mls @ 400 mls/hr IV Q8H PRN PRN Reason: MILD Pain Rating 1,2,3 Stop: 11/14/19 17:04 Last Infusion: 11/14/19 08:56 Dose: Infused Documented by: Promethazine HCl 12.5 mg/ (Sodium Chloride) 50.5 mls @ 204 mls/hr IV Q6H PRN PRN Reason: Nausea &/or Vomiting Stop: 12/13/19 17:04 Dexamethasone Sodium Phosphate (8 mg/ Syringe) 2 mls @ 1 mls/min IV DAILY YULISA Stop: 12/15/19 08:59 Influenza Virus Vaccine Quadrival (Do Not Administer Flu Vaccine) 1 ea N/A PRN PRN PRN Reason: Notification Stop: 12/13/19 17:04 Lisinopril (Lisinopril 10 Mg Tab) 10 mg PO QAM YULISA Stop: 12/09/19 08:59 Last Admin: 11/14/19 09:47 Dose: 10 mg Documented by: Lorazepam (Lorazepam 0.5 Mg Tab) 0.5 mg PO Q8H PRN PRN Reason: Sedation/Anxiety Stop: 12/13/19 17:04 Last Admin: 11/13/19 23:12 Dose: 0.5 mg Documented by: Magnesium Hydroxide (Magnesium Hydroxide Susp 30 Ml Udc) 30 ml PO DAILY PRN PRN Reason: Constipation Stop: 12/13/19 17:04 Metoclopramide HCl (Metoclopramide Hcl Inj 5 Mg/Ml 2 Ml Vial) 10 mg IV Q6H PRN PRN Reason: Nausea &/or Vomiting Stop: 12/13/19 17:04 Naloxone HCl (Naloxone Hcl 0.4 Mg/1 Ml Vial/Carp) 0.1 mg IV Q5M PRN; Protocol PRN Reason: Oversedation/Resp Depression Stop: 11/24/19 10:57 Naloxone HCl (Naloxone Hcl 0.4 Mg/1 Ml Vial/Carp) 0.1 mg IV Q5M PRN; Protocol PRN Reason: Oversedation/Resp Depression Stop: 12/13/19 17:04 Ondansetron HCl (Ondansetron Inj 2 Mg/Ml 2 Ml Vial) 4 mg IV Q6H PRN PRN Reason: Nausea &/or Vomiting Stop: 12/13/19 17:04 Ondansetron HCl (Ondansetron 4 Mg Od Tab) 4 mg PO Q6H PRN PRN Reason: Nausea Stop: 12/13/19 17:04 Oxycodone HCl (Oxycodone Hcl Ir 5 Mg Tab (Immediate Release)) 10 mg PO Q6H PRN PRN Reason: pain Stop: 11/22/19 11:09 Last Admin: 11/14/19 12:42 Dose: 10 mg Documented by: Phenol (Chloraseptic 1.4% Soln 180 Ml Btl) 1 sprays MT Q3H PRN PRN Reason: sore throat Stop: 12/13/19 21:47 Pneumococcal Polyvalent Vaccine (Do Not Administer Pneumococcal Vaccine) 1 ea N/A PRN PRN PRN Reason: Notification Stop: 12/13/19 17:04 Polyethylene Glycol (Polyethylene (Miralax) 17 Gm Pack) 17 gm PO Q6 YULISA Stop: 12/14/19 05:59 Last Admin: 11/14/19 12:22 Dose: Not Given Documented by: Senna/Docusate Sodium (Docusate Sodium/Senna 50/8.6mg Tab) 2 tab PO HS YULISA Stop: 12/13/19 20:59 Last Admin: 11/13/19 20:25 Dose: 2 tab Documented by: Sodium Biphosphate/Sodium Phosphate (Sod Phosphate/Sod Biphosphate Enema 132 Ml Btl) 132 ml [place] ONE PRN PRN Reason: Constipation Stop: 12/13/19 17:04 Tramadol HCl (Tramadol Hcl 50 Mg Tablet) 50 - 100 mg PO Q4H PRN PRN Reason: Moderate-Severe Pain & Pre PT Stop: 12/13/19 17:04 Vitamin D (Cholecalciferol 1,000 Units 25 Mcg Tab) 2,000 units PO DAILY YULISA Stop: 12/09/19 08:59 Last Admin: 11/14/19 09:47 Dose: 2,000 units Documented by: PG Care Time/CCT Total # of Minutes Spent Total Time Spent with Patient: Total time spent is greater than 50% in coordination of care (as documented) at patient's floor/unit and/or counseling patient: Coding Level of Care Code 39360 Subseq Hosp Care Lvl 2 Diagnoses Left lumbar radiculopathy M54.16 Hyperlipidemia E78.5 Rheumatoid arthritis M06.9 Hypertension I10 Asthma J45.909 Depression F32.9 Chronic back pain M54.9; G89.29 Morbid obesity E66.01
[2019-11-14] MEDS: ATORVASTATIN 10 MG TAB PO SCH (21:10)
[2019-11-14] MEDS: CITALOPRAM 20 MG TAB PO SCH (21:11)
[2019-11-14] MEDS: DOCUSATE SODIUM/SENNA 50/8.6MG TAB PO SCH (21:11)
[2019-11-14] MEDS: FAMOTIDINE 40 MG TABLET PO SCH (21:12)
[2019-11-15] MEDS: OXYCODONE HCL IR 5 MG TAB (IMMEDIATE RELEASE) PO PRN ×3 (01:03→19:29)
[2019-11-15] MEDS: hydroCHLOROthiazide 25 MG TAB PO SCH (08:23)
[2019-11-15] MEDS: CHOLECALCIFEROL 1,000 UNITS 25 MCG TAB PO SCH (08:23)
[2019-11-15] MEDS: FOLIC ACID 1 MG TAB PO SCH (08:24)
[2019-11-15] MEDS: lisinopriL 10 MG TAB PO SCH (08:24)
[2019-11-15] MEDS: ACETAMINOPHEN 500 MG TAB PO SCH ×2 (08:24→20:27)
[2019-11-15] MEDS: DEXAMETHASONE SOD PHOSPHATE 8 MG in SYRINGE 0 ML IV SCH (08:34)
--- NOTE | 2019-11-15 09:21 | Orthopedic Progress Note ---
Date of Service November 15, 2019 Assessment & Plan (1) Herniated nucleus pulposus, L4-5 left: Admission and Anticipated Discharge Date Admission Date: November 09, 2019 This time continue physical therapy anticipate discharge home tomorrow. Subjective Back pain controlled leg symptoms improved. Physical Exam Physical Exam: Patient has good strength testing appears comfortable. Results & Data ([facility]) Vital Signs (Past 12 Hours) Vital Signs Temp Pulse Resp BP Pulse Ox 11/15/19 07:37 36.9 C 94 H 16 131/89 94 11/14/19 23:15 36.5 C 81 20 98/62 L 96
--- NOTE | 2019-11-15 14:28 | Hospitalist Progress Note ---
Date of Service November 15, 2019 Assessment & Plan (1) Left lumbar radiculopathy: Radicular symptoms. MRI, lumbar spine IMPRESSION: 1. Moderate-sized left paracentral disc extrusion at L4-L5 with superior subligamentous migration that has mildly increased in size since MRI of February 23, 2018. This results in severe narrowing of the left lateral recess at this level. 2. Otherwise, mild multilevel degenerative disc disease and moderate multilevel facet arthrosis within the lumbar spine. pain control initially with BUNDLE PACKER, Toradol Tylenol and oxycodone also escalate bowel protocol given she is on more routine opiates Dr. Uribe took to OR on 11/12 decompression, discectomy, fusion feeling much improved on 11/13 and 11/14 breathing stable, + flatus, moving bowels today participating in therapy spoke with Dr. Uribe, hopeful for discharge on (2) Hyperlipidemia: typically on atorvostatin 10 mg (3) Rheumatoid arthritis: She is on chronic suppressive prednisone therapy vital and electrolytes stable, no need for Hydrocortisone at this time (4) Hypertension: lisinopril and hydrochlorothiazide (5) Asthma: (6) Depression: citalopram 20 mg PO HS (7) Chronic back pain: Now worsened with herniated disc and impingement DVT: heparin (8) Morbid obesity: recommend lifestyle changes Admission and Anticipated Discharge Date Admission Date: November 09, 2019 Subjective patient doing great she walked in the hallway, she is eating, she moved her bowels her pain is minimal still has STEFANIE drain in place Dr. Uribe pleased with her progress, will likely discharge tomorrow at the bedside, updated him no chest pain, no dyspnea, no fever/chills Review of Systems Review of Systems: All systems reviewed & are unremarkable except as noted in Subjective Musculoskeletal: + back pain Physical Exam Constitutional: well developed, + morbidly obese and comfortable; no acute distress Eyes: PERRL, conjunctivae normal, anicteric sclerae ENMT: external ear and nose normal, oropharynx normal Neck: trachea midline, no thyromegaly Respiratory: normal respiratory effort, lungs clear to auscultation Cardiovascular: RRR, no murmur, no edema Gastrointestinal (Abdomen): normal bowel sounds, soft, nontender, no hepatosplenomegaly Musculoskeletal: no cyanosis or clubbing, extremities motor strength 5/5 Skin: no rashes, warm and dry Neurologic: patellar DTR's 2+ bilat, sensation intact and PERRL, EOMI, accommodation nl, no face palsy, no dysarthria Psychiatric: A+Ox3, euthymic affect Lymphatic: no cervical or axillary lymphadenopathy Results & Data Results & Data ([facility]) Vital Signs (Past 12 Hours) Vital Signs Temp Pulse Resp BP Pulse Ox 11/15/19 07:37 36.9 C 94 H 16 131/89 94 Medications Administered Current Inpatient Medications Acetaminophen (Acetaminophen 500 Mg Tab) 1,000 mg PO BID [facility] Stop: 12/09/19 20:59 Last Admin: 11/15/19 08:24 Dose: 1,000 mg Documented by: Acetaminophen (Acetaminophen 500 Mg Tab) 1,000 mg PO Q8H PRN PRN Reason: MILD Pain Scale 1,2,3 & Pre PT Stop: 12/13/19 17:04 Al Hydrox/Mg Hydrox/Simethicone (Aluminum/Magnesium Susp 30 Ml Udc) 30 ml PO Q6H PRN PRN Reason: Dyspepsia Stop: 12/13/19 17:04 Atorvastatin Calcium (Atorvastatin 10 Mg Tab) 10 mg PO QPM YULISA Stop: 12/08/19 20:59 Last Admin: 11/14/19 21:10 Dose: 10 mg Documented by: Bisacodyl (Bisacodyl 10 Mg Supp) 10 mg MT DAILY PRN PRN Reason: Constipation Stop: 12/13/19 17:04 Citalopram Hydrobromide (Citalopram 20 Mg Tab) 20 mg PO QPM YULISA Stop: 12/08/19 20:59 Last Admin: 11/14/19 21:11 Dose: 20 mg Documented by: Diphenhydramine HCl (Diphenhydramine Hcl 25 Mg Cap) 25 mg PO Q6H PRN PRN Reason: Allergic Rhinitis/Insomnia Stop: 12/13/19 17:04 Famotidine (Famotidine 40 Mg Tablet) 40 mg PO QPM YULISA Stop: 12/08/19 20:59 Last Admin: 11/14/19 21:12 Dose: 40 mg Documented by: Famotidine (Famotidine 20 Mg Tab) 20 mg PO Q12H PRN PRN Reason: Dyspepsia Stop: 12/13/19 17:04 Folic Acid (Folic Acid 1 Mg Tab) 1 mg PO DAILY YULISA Stop: 12/09/19 08:59 Last Admin: 11/15/19 08:24 Dose: 1 mg Documented by: Hydrochlorothiazide (Hydrochlorothiazide 25 Mg Tab) 25 mg PO QAM [facility] Stop: 12/09/19 08:59 Last Admin: 11/15/19 08:23 Dose: 25 mg Documented by: Hydromorphone HCl (Hydromorphone Inj 0.5 Mg/0.5 Ml Syr) 0.5 mg IV Q3H PRN PRN Reason: MOD pain (scale 4-6) & Pre PT Stop: 11/27/19 17:04 Hydromorphone HCl (Hydromorphone Inj 1 Mg/Ml Syringe) 1 mg IV Q3H PRN PRN Reason: severe pain (scale 7-10) Stop: 11/27/19 17:04 Hydroxyzine HCl (Hydroxyzine Hcl 25 Mg Tab) 25 mg PO Q8H PRN PRN Reason: Anxiety Stop: 12/13/19 17:04 Lorazepam (Ativan) 0.5 mg in 1 mls @ 0.5 mls/min IV Q8H PRN PRN Reason: Sedation/Anxiety Stop: 12/13/19 17:04 Promethazine HCl 12.5 mg/ (Sodium Chloride) 50.5 mls @ 204 mls/hr IV Q6H PRN PRN Reason: Nausea &/or Vomiting Stop: 12/13/19 17:04 Dexamethasone Sodium Phosphate (8 mg/ Syringe) 2 mls @ 1 mls/min IV DAILY [facility] Stop: 12/15/19 08:59 Last Admin: 11/15/19 08:34 Dose: 1 mls/min Documented by: Influenza Virus Vaccine Quadrival (Do Not Administer Flu Vaccine) 1 ea N/A PRN PRN PRN Reason: Notification Stop: 12/13/19 17:04 Lisinopril (Lisinopril 10 Mg Tab) [facility] Stop: 12/09/19 08:59 Last Admin: 11/15/19 08:24 Dose: 10 mg Documented by: Lorazepam (Lorazepam 0.5 Mg Tab) 0.5 mg PO Q8H PRN PRN Reason: Sedation/Anxiety Stop: 12/13/19 17:04 Last Admin: 11/13/19 23:12 Dose: 0.5 mg Documented by: Magnesium Hydroxide (Magnesium Hydroxide Susp 30 Ml Udc) 30 ml PO DAILY PRN PRN Reason: Constipation Stop: 12/13/19 17:04 Metoclopramide HCl (Metoclopramide Hcl Inj 5 Mg/Ml 2 Ml Vial) 10 mg IV Q6H PRN PRN Reason: Nausea &/or Vomiting Stop: 12/13/19 17:04 Naloxone HCl (Naloxone Hcl 0.4 Mg/1 Ml Vial/Carp) 0.1 mg IV Q5M PRN; Protocol PRN Reason: Oversedation/Resp Depression Stop: 11/24/19 10:57 Naloxone HCl (Naloxone Hcl 0.4 Mg/1 Ml Vial/Carp) 0.1 mg IV Q5M PRN; Protocol PRN Reason: Oversedation/Resp Depression Stop: 12/13/19 17:04 Ondansetron HCl (Ondansetron Inj 2 Mg/Ml 2 Ml Vial) 4 mg IV Q6H PRN PRN Reason: Nausea &/or Vomiting Stop: 12/13/19 17:04 Ondansetron HCl (Ondansetron 4 Mg Od Tab) 4 mg PO Q6H PRN PRN Reason: Nausea Stop: 12/13/19 17:04 Oxycodone HCl (Oxycodone Hcl Ir 5 Mg Tab (Immediate Release)) 10 mg PO Q6H PRN PRN Reason: pain Stop: 11/22/19 11:09 Last Admin: 11/15/19 08:22 Dose: 10 mg Documented by: Phenol (Chloraseptic 1.4% Soln 180 Ml Btl) 1 sprays MT Q3H PRN PRN Reason: sore throat Stop: 12/13/19 21:47 Pneumococcal Polyvalent Vaccine (Do Not Administer Pneumococcal Vaccine) 1 ea N/A PRN PRN PRN Reason: Notification Stop: 12/13/19 17:04 Senna/Docusate Sodium (Docusate Sodium/Senna 50/8.6mg Tab) 2 tab PO HS YULISA Stop: 12/13/19 20:59 Last Admin: 11/14/19 21:11 Dose: Not Given Documented by: Sodium Biphosphate/Sodium Phosphate (Sod Phosphate/Sod Biphosphate Enema 132 Ml Btl) 132 ml MT ONE PRN PRN Reason: Constipation Stop: 12/13/19 17:04 Tramadol HCl (Tramadol Hcl 50 Mg Tablet) 50 - 100 mg PO Q4H PRN PRN Reason: Moderate-Severe Pain & Pre PT Stop: 12/13/19 17:04 Vitamin D (Cholecalciferol 1,000 Units 25 Mcg Tab) 2,000 units PO DAILY YULISA Stop: 12/09/19 08:59 Last Admin: 11/15/19 08:23 Dose: 2,000 units Documented by: PG Care Time/CCT Total # of Minutes Spent Total Time Spent with Patient: Total time spent is greater than 50% in coordination of care (as documented) at patient's floor/unit and/or counseling patient: Coding Level of Care Code 60110 Subseq Hosp Care Lvl 2 Diagnoses Left lumbar radiculopathy M54.16 Hyperlipidemia E78.5 Rheumatoid arthritis M06.9 Hypertension I10 Asthma J45.909 Depression F32.9 Chronic back pain M54.9; G89.29 Morbid obesity E66.01
[2019-11-15] MEDS: ACETAMINOPHEN 500 MG TAB PO PRN (15:30)
[2019-11-15] MEDS: DOCUSATE SODIUM/SENNA 50/8.6MG TAB PO SCH (20:26)
[2019-11-15] MEDS: ATORVASTATIN 10 MG TAB PO SCH (20:27)
[2019-11-15] MEDS: CITALOPRAM 20 MG TAB PO SCH (20:27)
[2019-11-15] MEDS: FAMOTIDINE 40 MG TABLET PO SCH (20:27)
[2019-11-16] MEDS: OXYCODONE HCL IR 5 MG TAB (IMMEDIATE RELEASE) PO PRN ×2 (02:11→08:04)
[2019-11-16] MEDS: ACETAMINOPHEN 500 MG TAB PO SCH (08:04)
[2019-11-16] MEDS: hydroCHLOROthiazide 25 MG TAB PO SCH (08:04)
[2019-11-16] MEDS: DEXAMETHASONE SOD PHOSPHATE 8 MG in SYRINGE 0 ML IV SCH (08:05)
[2019-11-16] MEDS: CHOLECALCIFEROL 1,000 UNITS 25 MCG TAB PO SCH (08:05)
[2019-11-16] MEDS: FOLIC ACID 1 MG TAB PO SCH (08:05)
[2019-11-16] MEDS: lisinopriL 10 MG TAB PO SCH (08:05)
--- NOTE | 2019-11-16 08:47 | Orthopedic Progress Note ---
Date of Service November 16, 2019 Assessment & Plan (1) Herniated nucleus pulposus, L4-5 left: Admission and Anticipated Discharge Date Admission Date: November 08 at this time allow her to go home today. She will complete a course of physical therapy to make sure she can tolerate stairs prior to discharge. 020 Subjective Patient's pain is well controlled. Leg symptoms markedly improved. She feels h er strength is again improving daily. Physical Exam Physical Exam: On exam she is comfortable. She is improved strength testing. Results & Data ([facility]) Vital Signs (Past 12 Hours) Vital Signs Temp Pulse Resp BP Pulse Ox 11/16/19 07:43 37.0 C 82 15 143/91 H 93 11/15/19 23:30 36.7 C 71 18 116/68 93
--- NOTE | 2019-11-20 08:00 | Discharge Summary ---
Date of Service November 20, 2019 Admission HPI Per Admitting Provider This is a pleasant 64-year-old female who appears to the ER with a past medical history of chronic back pain rheumatoid arthritis hypertension hyperlipidemia. Her main complaint is an exacerbation of her radicular back pain, And numbness down her left leg. She was previously seen by Dr. Yakov Rosenberg over a pain management from [facility]. But has been trying to get into orthopedic surgeon Dr. Yakov Uribe. She was recently seen in the ER on 11/03 for similar symptoms and has been trying to get an outpatient MRI but patient is extremely claustrophobic and requires sedation. Patient denies any urinary retention or loss of bowel control fever chills nausea vomiting urinary symptoms. Patient reports that after being seen in the ER and obtaining medications such as steroid steroids her pain had improved however this morning when she was walking towards the bathroom she was bending over to sit on her commode she felt acute flare of her back pain which caused her to fall but thankfully she if she fell on to the toilet. The pain grew severe 1010 intensity sharp. This prompted the patient to return to the ER. I discussed the case with the ER provider and agree that patient should be admitted under observation for pain control. This patient case was also says Dr. Uribe orthopedic surgeon who will see her later and during his hospital stay. Will consult anesthesia to obtain MRI. Admission Exam (Per Admitting) Constitutional well developed Eyes normal visual lagunas by confrontation ENMT external ear and nose normal, oropharynx normal Neck normal visual inspection Respiratory normal respiratory effort Cardiovascular Rate/Rhythm: regular rate Vessels: dorsalis pedis pulses present Chest (Breasts) Chest: normal inspection of chest Gastrointestinal (Abdomen) Inspection/Auscultation: abdomen normal to inspection Musculoskeletal Spine: + straight leg raise positive Extremities: extremities normal to inspection Gait: + antalgic gait Skin no rashes, warm and dry Neurologic moves all extremities Psychiatric A+Ox3, euthymic affect Discharge Data Consultations 11/08/19 10:43 ED Decision to Admit Stat 11/08/19 11:09 Consult Orthopedic Surgery Routine 11/08/19 11:41 Consult Anesthesiology Routine 11/08/19 16:55 Consult Anesthesiology Routine 11/13/19 17:05 Consult Case Management - Discharge Planning Routine 11/13/19 20:56 Consult Hospitalist Routine Procedures Performed Operation Date: 11/09/19 07:35 Actual Procedures p MRI with Anesthesia Sedation - Pérez Anglin MD Operation Date: 11/13/19 12:55 Actual Procedures p L4-L5 Decompression and Fusion with Instrumentation, Insertion of Interbody Cage at L4-L5(Not Applicable) - Evens Uribe DO [facility] Course (1) Herniated nucleus pulposus, L4-5 left: Pt was admitted via ER on 11/08/19 to hospitalist team for pain control. Sedated lumbar was performed. Pt underwent lumbar fusion on 11/13/19. Post op her pain was improved. She made progress with physical therapy daily. Lab values were within normal limits post op. SHe was discharged home on POD #3. Discharge Instructions ACTIVITY RECOMMENDATIONS: SELF CARE INSTRUCTIONS AFTER THORACIC/LUMBAR FUSIONS 1. You may walk to your tolerance. It is good exercise for your legs and back. Expect some back and intermittent leg aches and pains. 2. You may perform "counter-top" level activities (make a sandwich, wen with a project, etc.). 3. No bending or lifting of more than 10 pounds or back twisting of any nature (roll like a log when turning in bed). 4. You may ride in a car for 20-30 minutes at a time. No driving until after your first visit with your doctor. 5. Frequent changes of position and restricting sitting to 30 minutes at a time will help limit the amount of back spasms and stiffness you may experience. 6. You may discontinue the use of ambulatory aids (cane, crutches, etc.) once your strength and confidence allow. 7. You may wrapping machine operator the shower and let water strike your incision when you arrive home at least once daily. Do not take a tub bath, sit in a hot tub or go into a swimming pool until after your first recheck in the office. SPECIAL CARE INSTRUCTIONS: VERY IMPORTANT TO READ AND REVIEW A. Your surgical incision has been closed with a cosmetic suture under the skin that will dissolve in about 6 weeks. In 14 days, you can use a pair of clean scissors and cut the suture that is left outside of the skin at the ends of your incision. 1. The small skin tapes can be removed 7 days after surgery if they have not fallen off by that point. 2. You may keep the wound open to air as much as possible to promote healing after post-op day number 5 unless told otherwise by your doctor. 3. If you think the wound looks like it is becoming infected (redness or worsening drainage) and/or you are experiencing fever, chill or worsening back pain and muscle spasms, contact the office so that we may evaluate you as soon as possible. B. Complications are uncommon, but please contact us if you have any signs or symptoms of: 1. wound infection (fever higher than 102.5 degrees F, redness, separation of wound, drainage, or increasing pain from the incision) 2. blood clots in legs (pain, swelling, redness and warmth in legs) 3. urinary tract infection (fever higher than 102.5 degrees F, burning upon urination or increased frequency of urination) 4. nerve problems (inability to walk on your toes or heels, numbness, loss of bowel or bladder control) 5. any other symptoms that concern you C. Please call the office at if you have any concerns or questions about your operation or recovery. D. No smoking! Smoking drastically decreases the chance of a solid fusion. E. Do not take any anti-inflammatory medications (Indocin, Advil, Motrin, Aspirin, Naprosyn, etc.) as these may inhibit the chance of a solid fusion. Tylenol is okay to take for pain. MANAGING PAIN AFTER SPINAL SURGERY 1. Narcotic medication is intended for short-term use and will be provided for surgical pain. Surgical pain usually lasts for a period of 4-6 weeks. Narcotic medication includes Percocet, Vicodin, Darvocet, Tylenol #3 or Lortab. 2. Longer-term pain is more appropriately treated with non-narcotic medication such as Tylenol ES. 3. Muscle spasm is not appropriately treated with narcotics. Muscle relaxers such as Soma, Flexeril or Skelaxin can be used along with Tylenol ES. 4. Remember that we all live with some "aches and pains". This is not unusual or uncommon after an injury or as we get older. a. Back pain is expected and may include muscle spasms for 4 to 6 weeks after surgery. The pain should gradually improve. If the pain worsens for no apparent reason, please contact the office. b. Intermittent leg pain may also be experienced and should not be concerned about unless it worsens for no apparent reason. If so, please contact the office. 5. We will provide appropriate medication within the normal guidelines of their prescribed use. We will also be very cautious and aware of potential abuse and extended duration of patients' medication needs. a. Pain medications are for your comfort and to assist with sleep and rest so that the tissue can heal. They are not provided in order to return to normal activity and should not be used through the day. To do so or worsening pain at night can result from ongoing tissue damage and development of tolerance to the prescribed medicine. 6. Please allow 2-3 days to process refills. Prescriptions will not be mailed but must be picked up at the office. FOLLOW UP VISIT: Keep your scheduled follow-up appointment. Any questions, please call the office at . Supervising Physician Co-Signing Physician Notes Dr. Evens Uribe
== END 2019-11-16 10:40 | disposition home health service (06) | DRG 455 ==
LOC: 3W 05:33 → ED 05:33 → SUATTDRO 11:07 → 3W 12:00 → SUATTDRO 11-09 13:36